=== PATIENT | male | born 1965 ===

== ENCOUNTER 2021-10-17 16:53 | Inpatient (IN) ==
[2021-10-17] MEDS ORDERED: SODIUM CHLORIDE IV ONE (17:08)
[2021-10-17 17:29] LABS: POC Blood Urea Nitrogen 20 (6-20); POC Calcium, Ionized 0.89 (1.16-1.32); POC Chloride 82 (96-108); POC Creatinine 2.2 (0.6-1.2); POC Glucose, Random 118 (70-105); POC Potassium < 2.0 (3.3-5.1); POC Sodium 130 (133-145)
[2021-10-17] MEDS ORDERED: POTASSIUM CHLORIDE 40 MEQ in DEXTROSE 5% IN WATER 500 ML IV ONE (17:36)
--- NOTE | 2021-10-17 17:48 | Emergency Department Note ---
Weakness HPI General Chief complaint: Weakness Stated complaint: Weakness Time Seen by Provider: 10/17/21 17:08 Source: patient Mode of arrival: ambulatory Limitations: no limitations History of Present Illness HPI Narrative: Narrative: Patient presents to the ED with complaints of lower extremity weakness has been worsening x4 days. Patient states that whenever he walks he feels ataxic and give out on him. He states that they feel weird. He also complains of left hand pain x4 days. He states that it is swollen. He does not remember any traumatic event. Patient is a known alcoholic current everyday drinker and although he is answering my questions appropriately and he is lucid he is still obviously drunk. Patient [place] fever, chills, nausea, vomiting, abdominal pain, bladder or bowel incontinence, slurred speech, facial droopiness, upper extremity weakness or numbness. He states he has been eating and drinking plenty of fluid normally. He denies any significant past medical history. He is a current everyday smoker that is try to cut down. Denies any recreational drug use. Patient denies any other alleviating or aggravating factors. Related Data Allergies Allergy/AdvReac Type Severity Reaction Status Date / Time No Known Drug Allergies Allergy Verified 10/17/21 16:55 Review of Systems ROS ROS Narrative: Narrative: All systems ED: reviewed and negative except as stated. [facility] Narrative Patient History Narrative: Narrative: Medical/Surgical/Family History All Active Problems (Updated 10/17/21 @ 18:34 by Gil Espinosa DO) Hypokalemia (Acute) Acute hyponatremia (Acute) Dehydration (Acute) Alcohol intoxication (Acute) Social History Smoking Status: Current some day smoker Alcohol Intake Frequency: 2+ drinks per day Substance Use: does not use Exam Narrative Narrative: Narrative: General Limitations: no limitations General appearance: Present alert Head Head: Present atraumatic and normocephalic Eye Eye: Present PERRL and EOMI ENT ENT: Present normal oropharynx and mucous membranes dry Neck Neck: Present normal inspection and full ROM; Absent meningismus Respiratory Respiratory: Present normal lung sounds bilaterally; Absent respiratory distress Cardiovascular Cardiovascular: Present regular rate and normal rhythm Adbominal Abdominal: Present soft and tenderness Extremities Extremities: Present full ROM and normal capillary refill Back Back: Present normal inspection Neurological Neurological: Present alert, oriented X3 and other (NIHSS=0) Expanded Neurological Motor strength - LUE: 5/5 Motor strength - RUE: 5/5 Motor strength - LLE: 5/5 Motor strength - RLE: 5/5 Psychiatric Psychiatric: Present normal affect and normal mood Skin Skin: Present warm (WNL) and intact Course Course Course Narrative: Patient was evaluated for lower extremity weakness. When patient she arrived he was hypotensive with systolic blood pressure in the 70s. IV fluids were started and patient blood pressure responded appropriately and is now within normal limits. EKG was obtained and was unremarkable. CT of the head was obtained with image reviewed myself with no acute intracranial findings. Labs were obtained and show that patient was severely hypokalemic with a potassium level less than 2. He was also hyponatremic with a sodium level of 130. His magnesium was also low at 1. IV potassium magnesium were ordered and are currently running. Patient's creatinine was up to 2.2 with no known baseline. Seen how he responded to the fluids patient most likely dehydrated as well. Urine was unremarkable. Recommend that patient be admitted to hospitalist service. Case was discussed with hospitalist who has agreed to admit the patient. Patient and family expressed verbal understanding of plan and agreement. Reevaluation(s) Reevaluation #1: Patient remains hemodynamic stable. No new complaints at this time. Time: 17:51 Consultations Consultation #1: Case discussed with hospitalist who has agreed to admit the patient Time: 19:24 Vital Signs Vital signs: Vital Signs Temperature 97.9 F 10/17/21 16:56 Pulse Rate 108 H 10/17/21 16:56 Respiratory Rate 20 10/17/21 16:56 Blood Pressure 77/61 10/17/21 16:56 Pulse Oximetry (%) 96 10/17/21 16:56 Oxygen Delivery Method 10/17/21 16:56 Temperature 97.9 F 10/17/21 16:56 Pulse Rate 89 10/17/21 19:28 Respiratory Rate 30 H 10/17/21 19:28 Blood Pressure 118/79 10/17/21 19:28 Pulse Oximetry (%) 93 10/17/21 19:28 Oxygen Delivery Method 10/17/21 16:56 [facility] MDM Narrative Medical decision making narrative: Narrative: Differential Diagnosis Differential Diagnosis: etoh intox, stroke Medical Records Medical records reviewed: Yes I reviewed the patient's medical records. Lab Data Lab results reviewed: Yes I reviewed the patient's lab results. Result diagrams: 10/17/21 17:20 Labs: Lab Results 10/17/21 10/17/21 10/17/21 Range/Units 17:20 17:20 17:20 POC Hct (41-55) POC Sodium (133-145) POC Potassium (3.3-5.1) POC Chloride (96-108) POC Total CO2 (22-30) POC BUN (6-20) POC Creatinine (0.6-1.2) POC Glucose (70-105) POC WB Ioniz Calcium (1.16-1.32) Magnesium 1.0 L (1.6-2.5) mg/dL Total Bilirubin 2.6 H (0.1-1.0) mg/dL Direct Bilirubin 1.2 H (<0.3) mg/dL AST 91 H (<40) U/L ALT 15 (<40) U/L Alkaline Phosphatase 94 (39-117) U/L Total Protein 7.5 (5.9-8.4) gm/dL Albumin 3.1 L (3.2-5.2) gm/dL Globulin 4.4 H (2.2-3.7) gm/dL Ethyl Alcohol mg/dL 186.0 mg/dL Ethyl Alcohol g/dL 0.186 H (<0.010) gm/dL 10/17/21 Range/Units 17:26 POC Hct 29.0 L (41-55) POC Sodium 130 L (133-145) POC Potassium < 2.0 L* (3.3-5.1) POC Chloride 82 L (96-108) POC Total CO2 27.0 (22-30) POC BUN 20 (6-20) POC Creatinine 2.2 H (0.6-1.2) POC Glucose 118 H (70-105) POC WB Ioniz Calcium 0.89 L (1.16-1.32) Magnesium (1.6-2.5) mg/dL Total Bilirubin (0.1-1.0) mg/dL Direct Bilirubin (<0.3) mg/dL AST (<40) U/L ALT (<40) U/L Alkaline Phosphatase (39-117) U/L Total Protein (5.9-8.4) gm/dL Albumin (3.2-5.2) gm/dL Globulin (2.2-3.7) gm/dL Ethyl Alcohol mg/dL mg/dL Ethyl Alcohol g/dL (<0.010) gm/dL EKG Data EKG #1: EKG attestation: Yes I reviewed and interpreted this EKG. EKG shows normal: sinus rhythm Rate: tachycardia (100) Rhythm: NSR [place]/QRS: right axis deviation Heart block present: None ST segment elevation in: None ST segment depression in: None Hyperacute T waves: None QTc: normal QRS morphology: Present normal When compared to previous EKG there are: no significant changes Core Measures AMI Core Measures Followed: Yes Discharge Plan Patient/Caregiver Discharge Instructions Pt seen by PRODUCTION CONTROL SUPERVISOR/PA only: No Clinical Impression: Hypokalemia, Acute hyponatremia, Dehydration, Alcohol intoxication Patient Disposition: Xfer As Inpt ([facility] Condition: Fair Follow up with: Tuan Arguelles MD [Primary Care Provider] -
[2021-10-17] MEDS ORDERED: POTASSIUM CHLORIDE 40 MEQ/20 ML VIAL IV ONE (18:01)
--- NOTE | 2021-10-17 18:10 | Cat Scan Report ---
INDICATION: weakness COMPARISON: None. TECHNIQUE: Axial noncontrast-enhanced images through the brain. Sagittally and coronally reformatted images. FINDINGS: Cerebral hemispheres:No acute intracranial hemorrhage. No intra-axial hematoma, focal intra-axial attenuation abnormalities or localized mass effect. Paraspinal atrophy. No abnormality consistent with periventricular small vessel ischemic change. Advanced for age. Brainstem and cerebellum:There is cerebellar atrophy. Brainstem appears normal Extra-axial:No acute hemorrhage. No subdural or epidural hematoma. No subarachnoid hemorrhage. Basilar cisterns are normal Calvarial:No calvarial fracture. No lytic lesion Temporal bones are negative. No destructive lesions Soft tissue, orbits, sinuses:Orbits and visualized facial soft tissues and paranasal sinuses are negative IMPRESSION: 1. Cerebral and cerebellar atrophy 2. Periventricular white matter abnormality consistent with small vessel ischemic change 3. No acute abnormality The exam was performed using radiation dose optimization techniques including, but not limited to, automated exposure control, adjustment of the mA and/or kV according to patient size and use of iterative reconstruction technique. Interpreted and Authenticated by: Tobin Altamirano 10/17/21
[2021-10-17 18:16] LABS: Alcohol,Blood 0.186 gm/dL (<0.010)
[2021-10-17 18:20] LABS: ALT/SGPT 15 U/L (<40); AST/SGOT 91 U/L (<40); Albumin 3.1 gm/dL (3.2-5.2); Alkaline Phosphatase 94 U/L (39-117); Bilirubin,Direct 1.2 mg/dL (<0.3); Bilirubin,Total 2.6 mg/dL (0.1-1.0); Globulin 4.4 gm/dL (2.2-3.7)
[2021-10-17] MEDS ORDERED: MAGNESIUM SULFATE 8.12 MEQ in DEXTROSE 5% IN WATER 50 ML IV ONE (18:34)
[2021-10-17] MEDS ORDERED: 0.9 % SODIUM CHLORIDE 1,000 ML IV SCH ×2 (19:00→21:02)
--- NOTE | 2021-10-17 19:15 | XRay Report ---
INDICATION: pain TECHNIQUE: PA, oblique, lateral left hand COMPARISON: None. FINDINGS: No left hand fracture. No acute posttraumatic abnormality. No soft tissue gas. No detectable foreign body. Severe degenerative narrowing of the left second and third metatarsal phalangeal joints. There are no erosions. No evidence for inflammatory arthritis. There is degenerative joint disease in the left triscaphe joint and first carpal metacarpal joint. IMPRESSION: 1. No acute abnormality 2. Degenerative joint disease Interpreted and Authenticated by: Tobin Altamirano 10/17/21
[2021-10-17] MEDS ORDERED: THIAMINE 100 MG in 0.9 % SODIUM CHLORIDE 50 ML IV ONE (19:32)
--- NOTE | 2021-10-17 19:51 | Internal Med History&Physical ---
HPI History of Present Illness Patient information: Note initiated : 10/17/21 at 7:45 pm Service Date, if different from initiated Date: [] Patient: Jimi Mann a 56 y/o M admitted on for Weakness. Chief Complaint: [] History of present illness: Mr. Mann is a 56 year old M Presents to the ED after his roommate called EMS because the patient has become progressively weaker over the past week. Patient is a chronic alcohol use and elevated blood alcohol level in the ED. States last time he saw physician was few years ago. Last hospital notes I could find were from [facility] in 2013 for pneumonia. In the only the records I can find were outpatient physical therapy notes from 2016 related to his recurrent low back pain. Patient states over the past week he has become progressively weak. He says he gets dizzy and lightheaded when he gets up. He also states that when he is up at he feels like he loses his balance easily. Denies any headaches fevers chills nausea or vomiting. In the ED was initially hypotensive but responded well to IV fluid. Is also found to have a mild hyponatremia and a severe hypokalemia and hypomagnesemia. He also had elevated creatinine. Also found elevated bilirubin and blood alcohol level. Potassium was unreadable with less than 2 and sodium was 130. Magnesium was 1.0. Creatinine 2.2 albumin 3.[address] brain was significant for cerebellar atrophy and possibly some cerebellar atrophy. He also has periventricular small vessel disease. 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 Review of Systems: Positives as above. Denies headache/fever/chills/nausea/vomiting/chest or abdominal pain/cough/dyspnea/diarrhea. Remaining 10 point review of system reviewed negative PFSH PFSH All Active Problems (Updated 10/17/21 @ 18:34 by Gil Espinosa DO) Hypokalemia (Acute) Acute hyponatremia (Acute) Dehydration (Acute) Alcohol intoxication (Acute) Social History smoking status: Current some day smoker alcohol intake frequency: 2+ drinks per day substance use type: does not use MEDS/ALLERGIES Home Medications and Allergies Allergies Allergy/AdvReac Type Severity Reaction Status Date / Time No Known Drug Allergies Allergy Verified 10/17/21 16:55 EXAM Constitutional Vitals: Temp Pulse Resp BP Pulse Ox O2 Del Method 97.9 F 89 30 H 118/79 93 10/17/21 16:56 10/17/21 19:28 10/17/21 19:28 10/17/21 19:28 10/17/21 19:28 10/17/21 16:56 Exam: General: Alert, Awake, No acute Distress Eyes/N/T: EOMI, PERRL, dry MM, scleral icterus Head/Neck: neck supple, normocephalic atraumatic CV: RRR, No murmurs, normal s1/s2 Pulm: Clear b/l, no wheezing/rhonchi/rales Abd: soft, nontender, +BS x4 Ext: no clubbing/cyanosis/edema Neuro: Alert, moves all extremities, CN 2-12 grossly intact, symmetrical strength b/l upper/lower, sensations intact b/l upper/lower, [id number] test with mild ataxia. Skin: warm/dry DATA Data Completed and Pending Labs: Labs from last 24 hours 10/17/21 10/17/21 10/17/21 17:26 17:20 17:20 WBC RBC Hgb Hct POC Hct 29.0 L MCV MCH MCHC RDW Plt Count MPV Immature Gran % (Auto) Neut % (Auto) Immature Gran # POC Sodium 130 L POC Potassium < 2.0 L* POC Chloride 82 L POC Total CO2 27.0 POC BUN 20 POC Creatinine 2.2 H POC Glucose 118 H POC WB Ioniz Calcium 0.89 L Phosphorus Pending Magnesium 1.0 L Total Bilirubin Direct Bilirubin AST ALT Alkaline Phosphatase Total Protein Albumin Globulin Ethyl Alcohol mg/dL Ethyl Alcohol g/dL 10/17/21 10/17/21 10/17/21 17:20 17:20 17:20 WBC Pending RBC Pending Hgb Pending Hct Pending POC Hct MCV Pending MCH Pending MCHC Pending RDW Pending Plt Count Pending MPV Pending Immature Gran % (Auto) Pending Neut % (Auto) Pending Immature Gran # Pending POC Sodium POC Potassium POC Chloride POC Total CO2 POC BUN POC Creatinine POC Glucose POC WB Ioniz Calcium Phosphorus Magnesium Total Bilirubin 2.6 H Direct Bilirubin 1.2 H AST 91 H ALT 15 Alkaline Phosphatase 94 Total Protein 7.5 Albumin 3.1 L Globulin 4.4 H Ethyl Alcohol mg/dL 186.0 Ethyl Alcohol g/dL 0.186 H A/P Narrative A/P Narrative: A: *Ataxia, 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 Responded to IVF in the ED *Anemia, with borderline macrocytosis: 2/2 etoh *Hyperbilirubinemia/Hypoalbuminemia likely sequelae of alcohol use and likely developing liver disease *EVAN: 2/2 above, possibly ATN from hypotension *Tobacco abuse: *COPD: P: -IVF, monitor UOP -Thiamine/vitamins -Electrolyte replacement -Liver u/s -ciwa, prn benzo - -Dietary consult -pt/ot -Smoking cessation counseling >3 minutes -Referral to follow with Dr. Pak -ppx: lovenox full code Time Spent With Patient Time: Total time spent is greater than 50% in coordination of care (as documented) at patient's floor/unit and/or counseling patient: Total time spent with greater than 50% in coordination of care (as documented) at patient's floor/unit and/or counseling patient:: Greater than 70 minutes
[2021-10-17 19:56] LABS: Basophils # (Auto) 0.03 K/mcL (0.00-0.30); Basophils % (Auto) 0.4 % (0.0-2.0); Eosinophils # (Auto) 0 K/mcL (0.00-0.70); Eosinophils % (Auto) 0 % (0.0-7.0); Hematocrit 25.8 % (40.1-51.0); Hemoglobin 9.2 g/dL (13.7-17.5); Lymphocytes # (Auto) 0.75 K/mcL (1.50-4.80); Lymphocytes % (Auto) 10.5 % (15.5-49.0); Mean Cell Volume 98.1 fL (80.0-100.0); Mean Corpuscular HGB Conc 35.7 g/dL (31.0-36.0); Mean Platelet Volume 10.9 fL (7.4-10.4); Monocytes # (Auto) 0.75 K/mcL (0.10-0.90); Monocytes % (Auto) 10.5 % (1.0-12.0); Neutrophils % (Auto) 77.9 % (38.0-78.0); Platelet Count 75 K/mcL (140-440); RBC 2.63 M/mcL (4.63-6.08); WBC 7.2 K/mcL (4.5-11.0)
[2021-10-17 20:45] LABS: Phosphorous 1.1 mg/dL (2.5-4.5)
[2021-10-17 20:55] LABS: INR 1.2 (0.9-1.1); Prothrombin Time 15.9 sec (11.9-14.5)
[2021-10-17] MEDS ORDERED: POTASSIUM CHLORIDE 40 MEQ in DEXTROSE 5% IN WATER 500 ML IV PRN (21:02)
[2021-10-17] MEDS ORDERED: POLYETHYLENE GLYCOL 3350 17 GM PACKET PO PRN (21:02)
[2021-10-17] MEDS ORDERED: chlordiazePOXIDE 25 MG CAPSULE PO PRN (21:02)
[2021-10-17] MEDS ORDERED: IPRATROPIUM/ALBUTEROL 3 ML AMPUL.NEB NEB PRN (21:02)
[2021-10-17] MEDS ORDERED: ACETAMINOPHEN 325 MG TABLET PO PRN (21:02)
[2021-10-17] MEDS ORDERED: SENNOSIDES 1 TABLET PO PRN (21:02)
[2021-10-17] MEDS ORDERED: DIAZEPAM 10 MG/2 ML SYRINGE IV PRN (21:02)
[2021-10-17] MEDS ORDERED: ONDANSETRON 4 MG/2 ML VIAL IV PRN (21:02)
[2021-10-17] MEDS ORDERED: POTASSIUM PHOSPHATE 40 MEQ in DEXTROSE 5% IN WATER 500 ML IV ONE (21:05)
[2021-10-17 21:10] LABS: Appearance,Urine Slightly Cloudy (Clear); Bacteria,Urine MANY /hpf (0); Bilirubin,Urine Negative (Negative); Color,Urine Yellow; Culture Indicated,Urine yes; Glucose,Urine (UA) Negative (Negative); Ketones,Urine Negative (Negative); Leukocyte Esterase,Urine Small /uL (Negative); Nitrate,Urine Negative (Negative); Protein,Urine Trace mg/dL (Negative); Urine Blood Moderate ery/mcL (Negative); Urine Hyaline Cast 11 /lph (0-2); Urine RBC 2 /hpf (0-3); Urine Squamous Epithelial Cell < 1 /hpf (0-4); Urine WBC 37 /hpf (0-4); Urobilinogen,Urine 2.0 E.U./dL mg/dL
[2021-10-17] MEDS ORDERED: THIAMINE 100 MG/ML VIAL ONE (21:23)
[2021-10-17] MEDS ORDERED: POTASSIUM PHOSPHATE 66 MEQ/15 ML VIAL IV ONE (21:25)
[2021-10-17] MEDS: NEUTRA PHOS 1 PACKET PO SCH (21:31)
[2021-10-17] MEDS: MULTIVIT,THER IRON,CA,FA & MIN 1 TABLET PO SCH (21:31)
[2021-10-17] MEDS: PHOSPHORUS 250 MG TABLET PO SCH (21:31)
[2021-10-17] MEDS: FAMOTIDINE 20 MG TABLET PO SCH (21:31)
[2021-10-17] MEDS: FOLIC ACID 1 MG TABLET PO SCH (21:31)
[2021-10-17 21:47] LABS: Uric Acid 6.4 mg/dL (2.5-8.0)
[2021-10-17 22:15] LABS: Blood Urea Nitrogen 19 mg/dL (6-20); Calcium 7.5 mg/dL (8.6-10.4); Carbon Dioxide 27 mmol/L (22-30); Chloride 86 mmol/L (96-108); Glomerular Filtration Rate 50; Glucose 116 mg/dL (70-105)
[2021-10-17] MEDS ORDERED: LACTATED RINGERS 1,000 ML IV ONE (22:35)
[2021-10-17] MEDS: 0.9 % SODIUM CHLORIDE 10 ML SYRINGE IV SCH (22:52)
[2021-10-18] MEDS: 0.9 % SODIUM CHLORIDE 10 ML SYRINGE IV SCH ×3 (06:01→22:47)
[2021-10-18 07:40] LABS: ALT/SGPT 12 U/L (<40); AST/SGOT 73 U/L (<40); Albumin 2.7 gm/dL (3.2-5.2); Albumin/Globulin Ratio 0.7 (1.0-2.3); Alkaline Phosphatase 83 U/L (39-117); Bilirubin,Direct 1.2 mg/dL (<0.3); Bilirubin,Total 2.4 mg/dL (0.1-1.0); Blood Urea Nitrogen 14 mg/dL (6-20); Calcium 7.4 mg/dL (8.6-10.4); Carbon Dioxide 29 mmol/L (22-30); Chloride 90 mmol/L (96-108); Glomerular Filtration Rate 66; Glucose 97 mg/dL (70-105); Lactate Dehydrogenase 338 U/L (135-225); Phosphorous 3.8 mg/dL (2.5-4.5); Triglycerides 78 mg/dL (<150); Uric Acid 5.4 mg/dL (2.5-8.0)
[2021-10-18] MEDS: 0.9 % SODIUM CHLORIDE 1,000 ML IV SCH ×2 (08:17→09:05)
[2021-10-18] MEDS ORDERED: MAGNESIUM SULFATE 24.36 MEQ in DEXTROSE 5% IN WATER 50 ML IV ONE (08:35)
--- NOTE | 2021-10-18 08:36 | Internal Med Progress Note ---
SUBJECTIVE Subjective Patient information: Note initiated : 10/18/21 at 8:32 am Service Date, if different from initiated Date: [] Patient: Jimi Mann 56 y/o M admitted on 10/17/21 for Weakness. Chief Complaint: [] Interval history: History of present illness: Mr. Mann is a 56 year old M Presents to the ED after his roommate called EMS because the patient has become progressively weaker over the past week. Patient is a chronic alcohol use and elevated blood alcohol level in the ED. States last time he saw physician was few years ago. Last hospital notes I could find were from [facility] in 2013 for pneumonia. In the only the records I can find were outpatient physical therapy notes from 2016 related to his recurrent low back pain. Patient states over the past week he has become progressively weak. He says he gets dizzy and lightheaded when he gets up. He also states that when he is up at he feels like he loses his balance easily. Denies any headaches fevers chills nausea or vomiting. In the ED was initially hypotensive but responded well to IV fluid. Is also found to have a mild hyponatremia and a severe hypokalemia and hypomagnesemia. He also had elevated creatinine. Also found elevated bilirubin and blood alcohol level. Potassium was unreadable with less than 2 and sodium was 130. Magnesium was 1.0. Creatinine 2.2 albumin 3.[address] brain was significant for cerebellar atrophy and possibly some cerebellar atrophy. He also has periventricular small vessel disease. 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 10/18 Patient became hypotensive poor urine output yesterday evening. Lactated ringer bolus with maintenance fluid and improvement in vitals and urine output. Yann tong continues to have severe electrolyte abnormalities. Continue aggressive repletion. Liver ultrasound pending. Platelets 69. Potassium 1.9 mag 1.1. Review of Systems: denies headache/fever/chills/nausea/vomiting/chest or abdominal pain/cough/dyspnea/diarrhea. Otherwise see above. Constitutional Vitals: Vital Signs Temp Pulse Resp BP Pulse Ox O2 Del Method O2 Flow Rate 99.3 F H 82 23 H 132/72 94 0 10/18/21 08:00 10/17/21 21:05 10/18/21 08:00 10/18/21 08:00 10/18/21 04:00 10/17/21 20:55 10/17/21 19:31 Period Temp Pulse Resp BP Sys/Vaughn Pulse Ox O2 Del Method O2 Flow Rate Last 24 Hr 97.4 F-99.3 F 82-108 17-30 74-136/51-89 89-99 Room Air-Room Air 0 Intake and Output 10/17/21 10/18/21 10/18/21 21:59 05:59 13:59 Intake Total 21010.0909 636 Output Total 125 1075 240 Balance 1976 1005.0909 396 Weight 58.967 kg Intake & Output: Intake & Output 10/17/21 10/18/21 10/18/21 21:59 05:59 13:59 Intake Total 21010.0909 636 Output Total 125 1075 240 Balance 1976 1005.0909 396 Weight 58.967 kg Intake: IV 2101 2079.09 636 Sodium Chloride 0.9% 1,000 ml @ 2049 636 75 mls/hr IV .[id number] [facility] Rx#: [id number] Lactated Ringers 1,000 ml @ 1000 Wide Open IV BOLUS ONE Rx#: [id number] Magnesium Sulfate 8.12 Meq In 52 Dextrose 5% in Water 50 ml @ 52 mls/hr IV ONCE ONE Rx#: [id number] Potassium Chloride 40 Meq In 520 Dextrose 5% in Water 500 ml @ 130 mls/hr IV ONCE ONE Rx#: [id number] Potassium Phosphate 40 Meq In 509.0909 Dextrose 5% in Water 500 ml @ 127.273 mls/hr IV ONCE ONE Rx#: [id number] Vitamin B1 100 mg In Sodium 51 Chloride 0.9% 50 ml @ 50 mls/hr IV ONCE ONE Rx#:[id number] Output: Void Amount 125 1075 240 Other: Urine Appearance Cloudy Cloudy Clear Urine Color Dark [place] Dark [place] Bright Yellow Urine Odor Normal Exam: General: Alert, Awake, No acute Distress Eyes/N/T: EOMI, scleral icterus Head/Neck: neck supple, CV: RRR, No murmurs, Pulm: Clear b/l, no wheezing/rhonchi/rales Abd: soft, nontender, +BS x4 Ext: no clubbing/cyanosis/edema Neuro: Alert, moves all extremities, [id number] test with mild ataxia. Skin: warm/dry OBJ DATA Labs CBC & Chem 7: 10/18/21 05:30 10/18/21 05:29 Labs: Abnormal Lab Results 10/18/21 10/17/21 10/17/21 05:29 20:51 20:47 RBC Hgb Hct POC Hct MCH RDW Plt Count MPV Immature Gran % (Auto) Lymph % (Auto) Lymph # (Auto) PT INR POC Sodium Sodium 129 L POC Potassium Potassium 1.9 L* 2.0 L* POC Chloride Chloride 90 L 86 L Creatinine 1.5 H POC Creatinine Glucose 116 H POC Glucose Calcium 7.4 L 7.5 L POC WB Ioniz Calcium Phosphorus Magnesium 1.1 L Total Bilirubin 2.4 H Direct Bilirubin 1.2 H GGT 160 H 181 H AST 73 H Lactate Dehydrogenase 338 H Albumin 2.7 L Globulin 4.0 H Albumin/Globulin Ratio 0.7 L Urine Appearance Urine Protein Urine Occult Blood Urine Urobilinogen Ur Leukocyte Esterase Urine WBC Urine Bacteria Hyaline Casts Ethyl Alcohol g/dL 10/17/21 10/17/21 10/17/21 20:27 17:26 17:20 RBC Hgb Hct POC Hct 29.0 L MCH RDW Plt Count MPV Immature Gran % (Auto) Lymph % (Auto) Lymph # (Auto) PT 15.9 H INR 1.2 H POC Sodium 130 L Sodium POC Potassium < 2.0 L* Potassium POC Chloride 82 L Chloride Creatinine POC Creatinine 2.2 H Glucose POC Glucose 118 H Calcium POC WB Ioniz Calcium 0.89 L Phosphorus Magnesium Total Bilirubin Direct Bilirubin GGT AST Lactate Dehydrogenase Albumin Globulin Albumin/Globulin Ratio Urine Appearance Slightly cloudy A Urine Protein Trace A Urine Occult Blood Moderate A Urine Urobilinogen 2.0 e.u./dl A Ur Leukocyte Esterase Small A Urine WBC 37 H Urine Bacteria Many A Hyaline Casts 11 H Ethyl Alcohol g/dL 10/17/21 10/17/21 10/17/21 17:20 17:20 17:20 RBC Hgb Hct POC Hct MCH RDW Plt Count MPV Immature Gran % (Auto) Lymph % (Auto) Lymph # (Auto) PT INR POC Sodium Sodium POC Potassium Potassium POC Chloride Chloride Creatinine POC Creatinine Glucose POC Glucose Calcium POC WB Ioniz Calcium Phosphorus 1.1 L Magnesium 1.0 L Total Bilirubin 2.6 H Direct Bilirubin 1.2 H GGT AST 91 H Lactate Dehydrogenase Albumin 3.1 L Globulin 4.4 H Albumin/Globulin Ratio Urine Appearance Urine Protein Urine Occult Blood Urine Urobilinogen Ur Leukocyte Esterase Urine WBC Urine Bacteria Hyaline Casts Ethyl Alcohol g/dL 10/17/21 10/17/21 17:20 17:20 RBC 2.63 L Hgb 9.2 L Hct 25.8 L POC Hct MCH 35.0 H RDW 17.0 H Plt Count 75 L MPV 10.9 H Immature Gran % (Auto) 0.7 H Lymph % (Auto) 10.5 L Lymph # (Auto) 0.75 L PT INR POC Sodium Sodium POC Potassium Potassium POC Chloride Chloride Creatinine POC Creatinine Glucose POC Glucose Calcium POC WB Ioniz Calcium Phosphorus Magnesium Total Bilirubin Direct Bilirubin GGT AST Lactate Dehydrogenase Albumin Globulin Albumin/Globulin Ratio Urine Appearance Urine Protein Urine Occult Blood Urine Urobilinogen Ur Leukocyte Esterase Urine WBC Urine Bacteria Hyaline Casts Ethyl Alcohol g/dL 0.186 H Meds: Medications Acetaminophen (Acetaminophen 325 Mg Tablet) 650 mg PO Q6HP PRN; Protocol PRN Reason: Per Pain Protocol/Fever > 101 Albuterol/Ipratropium (Ipratropium/Albuterol 3 Ml Ampul.Neb) 3 ml NEB Q4HP PRN PRN Reason: Shortness Of Breath Chlordiazepoxide HCl (Chlordiazepoxide 25 Mg Capsule) 25 mg PO Q4HP PRN PRN Reason: Alcohol Withdrawal/Assess CIWA Diazepam (Diazepam 10 Mg/2 Ml Syringe) 5 - 10 mg IV Q2HP PRN PRN Reason: Alcohol Withdrawal/Assess CIWA Enoxaparin Sodium (Enoxaparin 40 Mg/0.4 Ml Syringe) 40 mg SQ DAILY [facility] Famotidine (Famotidine 20 Mg Tablet) 20 mg PO BID [facility] Last Admin: 10/17/21 21:31 Dose: 20 mg Folic Acid (Folic Acid 1 Mg Tablet) 1 mg PO DAILY [facility] Last Admin: 10/17/21 21:31 Dose: 1 mg Potassium Chloride 40 meq/ (Dextrose) 520 mls @ 130 mls/hr IV UD PRN PRN Reason: Potassium < 3 Magnesium Sulfate (Magnesium Sulfate) 2 gm in 50 mls @ 50 mls/hr IV UD PRN PRN Reason: Magnesium </= 1.6 Thiamine HCl 100 mg/ Sodium (Chloride) 51 mls @ 50 mls/hr IV DAILY [facility] Sodium Chloride (Sodium Chloride 0.9%) 1,000 mls @ 100 mls/hr IV .Q10H [facility] Stop: 10/18/21 18:35 Last Admin: 10/18/21 08:17 Dose: Not Given Iron Carb/Multivit/Regulatory Affairs Coordinator/Folic Acid (Multivit,Ther Iron,Ca,Fa & Min 1 Tablet) 1 tab PO DAILY [facility] Last Admin: 10/17/21 21:31 Dose: 1 tab Ondansetron HCl (Ondansetron 4 Mg/2 Ml Vial) 4 mg IV Q4HP PRN PRN Reason: Nausea And Vomiting Polyethylene Glycol (Polyethylene Glycol 3350 17 Gm Packet) 17 gm PO DAILYP PRN PRN Reason: Constipation Potassium Chloride (Potassium Chloride 20 Meq Tablet) 40 meq PO UD PRN PRN Reason: Potssium is 3-3.5 Potassium Chloride (Potassium Chloride 20 Meq Tablet) 40 meq PO UD PRN PRN Reason: Potassium < 3 Potassium/Phosphorus/Sodium (Neutra Phos 1 Packet) 1 packet PO BID [facility] Stop: 10/18/21 09:01 Last Admin: 10/17/21 21:31 Dose: 1 packet Senna (Sennosides 1 Tablet) 2 tab PO DAILYP PRN PRN Reason: Constipation Sodium Chloride (0.9 % Sodium Chloride 10 Ml Syringe) 10 ml IV Q8 [facility] Last Admin: 10/18/21 06:01 Dose: 10 ml Sodium Phosphate (Phosphorus 250 Mg Tablet) 250 mg PO BID [facility] Stop: 10/18/21 09:01 Last Admin: 10/17/21 21:31 Dose: 250 mg A/P Narrative A/P Narrative: A: *Ataxia, 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 Responded to IVF in the ED, then needed bolus in ICU *Anemia, with borderline macrocytosis: 2/2 etoh *Hyperbilirubinemia/Hypoalbuminemia/Thrombocytopenia likely sequelae of alcohol use and likely developing liver disease *EVAN: 2/2 above, possibly ATN from hypotension, improving *Tobacco abuse: *COPD: P: -IVF, monitor UOP -Thiamine/vitamins -cont Electrolyte replacement -Liver u/s -ciwa, prn benzo -Dietary consult -pt/ot -Smoking cessation counseling -Referral to follow with Dr. Pak -ppx: lovenox (as long ast PLTs>50k) full code Time Spent With Patient Time: Total time spent is greater than 50% in coordination of care (as documented) at patient's floor/unit and/or counseling patient: Total time spent with greater than 50% in coordination of care (as documented) at patient's floor/unit and/or counseling patient:: 35 - 50 minutes
[2021-10-18 08:40] LABS: Basophils # (Auto) 0.03 K/mcL (0.00-0.30); Basophils % (Auto) 0.6 % (0.0-2.0); Eosinophils # (Auto) 0.01 K/mcL (0.00-0.70); Eosinophils % (Auto) 0.2 % (0.0-7.0); Hematocrit 22.3 % (40.1-51.0); Hemoglobin 8.3 g/dL (13.7-17.5); Lymphocytes # (Auto) 0.66 K/mcL (1.50-4.80); Lymphocytes % (Auto) 12.9 % (15.5-49.0); Mean Corpuscular HGB Conc 37.2 g/dL (31.0-36.0); Mean Platelet Volume 11.1 fL (7.4-10.4); Monocytes # (Auto) 0.39 K/mcL (0.10-0.90); Monocytes % (Auto) 7.6 % (1.0-12.0); Neutrophils % (Auto) 78.3 % (38.0-78.0); Platelet Count 69 K/mcL (140-440); Red Cell Distribution Width 17.2 % (11.5-14.5); WBC 5.1 K/mcL (4.5-11.0)
[2021-10-18] MEDS ORDERED: POTASSIUM CHLORIDE 20 MEQ in DEXTROSE 5% IN WATER 250 ML IV ONE ×2 (08:44→16:44)
[2021-10-18] MEDS: MULTIVIT,THER IRON,CA,FA & MIN 1 TABLET PO SCH (09:03)
[2021-10-18] MEDS: FAMOTIDINE 20 MG TABLET PO SCH ×2 (09:03→20:29)
[2021-10-18] MEDS: FOLIC ACID 1 MG TABLET PO SCH (09:03)
[2021-10-18] MEDS: ENOXAPARIN 40 MG/0.4 ML SYRINGE SQ SCH (09:03)
[2021-10-18] MEDS: POTASSIUM CHLORIDE 20 MEQ TABLET PO PRN ×2 (09:03→17:12)
[2021-10-18] MEDS: NEUTRA PHOS 1 PACKET PO SCH (09:03)
[2021-10-18] MEDS: THIAMINE 100 MG in 0.9 % SODIUM CHLORIDE 50 ML IV SCH (09:04)
[2021-10-18] MEDS: MAGNESIUM SULFATE 2 GM/50 ML BAG IV PRN (09:04)
[2021-10-18] MEDS: PHOSPHORUS 250 MG TABLET PO SCH (09:15)
--- NOTE | 2021-10-18 09:51 | Ultrasound Report ---
INDICATION: Hyperbilirubinemia, alcohol use TECHNIQUE: Grayscale and color flow Doppler spectral imaging COMPARISON: None. FINDINGS: Gallbladder:Gallbladder is distended and measures approximately 11 cm in maximum dimension. There is biliary sludge. No discrete stones. No gallbladder wall thickening or pericholecystic fluid Common bile duct:No intrahepatic bile duct dilatation identified. Common bile duct measures 7 mm. Liver:Liver is echogenic and dense. Findings are consistent with hepatic steatosis. No focal mass. Liver contour is smooth. There is no ascites. Liver [id number] cm Portal vein:Normal hepatopedal portal venous flow Pancreas:Visualized portions of the pancreas are normal IMPRESSION: 1. Distended gallbladder with biliary sludge. No discrete stones. No gallbladder wall thickening 2. Echogenic liver consistent with hepatic steatosis Interpreted and Authenticated by: Tobin Altamirano 10/18/21
--- NOTE | 2021-10-18 10:23 | Discharge Summary ---
Discharge Provider Provider IMPORTANT FOLLOW-UP INFORMATION FOR PCP: Patient information: Note initiated : 10/18/21 at 10:21 am Service Date, if different from initiated Date: [] Patient: Jimi Mann 56 y/o M admitted on 10/17/21 for Weakness. Chief Complaint: [] Date of admission: 10/17/21 20:55 Primary care physician: Tuan Arguelles Consults: 10/17/21 Consult to Physician [CONS] Stat Comment: Consulting Provider: Simon Marcial Reason For Exam: Physician to Consult Consult to Physician [CONS] Stat Comment: severe hypokalemia Consulting Provider: Simon Marcial Reason For Exam: Physician to Consult COURSE Hospital Course Hospital course: History of present illness: Mr. Mann is a 56 year old M Presents to the ED after his roommate called EMS because the patient has become progressively weaker over the past week. Patient is a chronic alcohol use and elevated blood alcohol level in the ED. States last time he saw physician was few years ago. Last hospital notes I could find were from [facility] in 2013 for pneumonia. In the only the records I can find were outpatient physical therapy notes from 2016 related to his recurrent low back pain. Patient states over the past week he has become progressively weak. He says he gets dizzy and lightheaded when he gets up. He also states that when he is up at he feels like he loses his balance easily. Denies any headaches fevers chills nausea or vomiting. In the ED was initially hypotensive but responded well to IV fluid. Is also found to have a mild hyponatremia and a severe hypokalemia and hypomagnesemia. He also had elevated creatinine. Also found elevated bilirubin and blood alcohol level. Potassium was unreadable with less than 2 and sodium was 130. Magnesium was 1.0. Creatinine 2.2 albumin 3.[address] brain was significant for cerebellar atrophy and possibly some cerebellar atrophy. He also has periventricular small vessel disease. 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 10/18 Patient became hypotensive poor urine output yesterday evening. Lactated ringer bolus with maintenance fluid and improvement in vitals and urine output. Patient continues to have severe electrolyte abnormalities. Continue aggressive repletion. Liver ultrasound pending. Platelets 69. Potassium 1.9 mag 1.1. 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 Responded to IVF in the ED, then needed bolus in ICU *Anemia, with borderline macrocytosis: 2/2 etoh *Hyperbilirubinemia/Hypoalbuminemia/Thrombocytopenia likely sequelae of alcohol use and likely developing liver disease *EVAN: 2/2 above, possibly ATN from hypotension, improving *Tobacco abuse: *COPD: P: -Referral to follow with Dr. Pak Discharge diagnosis: Ataxia likely alcoholic cerebellar degeneration chronic alcohol use general Secondary discharge diagnosis: Severe electrolyte abnormalities hypertension anemia liver disease acute kidney injury tobacco abuse COPD Time Spent with Patient Time attestation: Total time spent providing and/or coordinating discharge services: Time spent: Greater than 30 minutes EXAM Constitutional Vitals: Temp Pulse Resp BP Pulse Ox O2 Del Method O2 Flow Rate 99.3 F H 82 23 H 132/72 94 0 10/18/21 08:00 10/17/21 21:05 10/18/21 08:00 10/18/21 08:00 10/18/21 04:00 10/17/21 20:55 10/17/21 19:31 Discharge Data Data Completed and Pending Labs on day of discharge: Labs from last 24 hours 10/18/21 10/18/21 10/17/21 05:30 05:29 20:51 WBC 5.1 RBC 2.30 L Hgb 8.3 L Hct 22.3 L POC Hct MCV 97.0 MCH 36.1 H MCHC 37.2 H RDW 17.2 H Plt Count 69 L MPV 11.1 H Immature Gran % (Auto) 0.4 Neut % (Auto) 78.3 H Lymph % (Auto) 12.9 L [place] % (Auto) 7.6 Eos % (Auto) 0.2 Baso % (Auto) 0.6 Lymph # (Auto) 0.66 L [place] # (Auto) 0.39 Eos # (Auto) 0.01 Baso # (Auto) 0.03 Immature Gran # 0.02 Absolute Neutrophils 4.02 PT INR POC Sodium Sodium 134 POC Potassium Potassium 1.9 L* POC Chloride Chloride 90 L Carbon Dioxide 29 POC Total CO2 Anion Gap 15.0 POC BUN BUN 14 Creatinine 1.2 POC Creatinine GFR Calculation 66 Glucose 97 POC Glucose Uric Acid 5.4 6.4 Calcium 7.4 L POC WB Ioniz Calcium Phosphorus 3.8 Magnesium 1.1 L Total Bilirubin 2.4 H Direct Bilirubin 1.2 H GGT 160 H 181 H AST 73 H ALT 12 Alkaline Phosphatase 83 Lactate Dehydrogenase 338 H Total Protein 6.7 Albumin 2.7 L Globulin 4.0 H Albumin/Globulin Ratio 0.7 L Triglycerides 78 Vitamin B12 578.2 Urine Color Urine Appearance Urine pH Ur Specific [place] Urine Protein Urine Glucose (UA) Urine Ketones Urine Occult Blood Urine Nitrate Urine Bilirubin Urine Urobilinogen Ur Leukocyte Esterase Urine RBC Urine WBC Ur Squamous Epith Cells Urine Bacteria Hyaline Casts Ur Culture Indicated? Ethyl Alcohol mg/dL Ethyl Alcohol g/dL 10/17/21 10/17/21 10/17/21 20:47 20:27 17:26 WBC RBC Hgb Hct POC Hct 29.0 L MCV MCH MCHC RDW Plt Count MPV Immature Gran % (Auto) Neut % (Auto) Lymph % (Auto) [place] % (Auto) Eos % (Auto) Baso % (Auto) Lymph # (Auto) [place] # (Auto) Eos # (Auto) Baso # (Auto) Immature Gran # Absolute Neutrophils PT INR POC Sodium 130 L Sodium 129 L POC Potassium < 2.0 L* Potassium 2.0 L* POC Chloride 82 L Chloride 86 L Carbon Dioxide 27 POC Total CO2 27.0 Anion Gap 16.0 POC BUN 20 BUN 19 Creatinine 1.5 H POC Creatinine 2.2 H GFR Calculation 50 Glucose 116 H POC Glucose 118 H Uric Acid Calcium 7.5 L POC WB Ioniz Calcium 0.89 L Phosphorus Magnesium Total Bilirubin Direct Bilirubin GGT AST ALT Alkaline Phosphatase Lactate Dehydrogenase Total Protein Albumin Globulin Albumin/Globulin Ratio Triglycerides Vitamin B12 Urine Color Yellow Urine Appearance Slightly cloudy A Urine pH 6.0 Ur Specific [place] 1.010 Urine Protein Trace A Urine Glucose (UA) Negative Urine Ketones Negative Urine Occult Blood Moderate A Urine Nitrate Negative Urine Bilirubin Negative Urine Urobilinogen 2.0 e.u./dl A Ur Leukocyte Esterase Small A Urine RBC 2 Urine WBC 37 H Ur Squamous Epith Cells < 1 Urine Bacteria Many A Hyaline Casts 11 H Ur Culture Indicated? yes Ethyl Alcohol mg/dL Ethyl Alcohol g/dL 10/17/21 10/17/21 10/17/21 17:20 17:20 17:20 WBC RBC Hgb Hct POC Hct MCV MCH MCHC RDW Plt Count MPV Immature Gran % (Auto) Neut % (Auto) Lymph % (Auto) [place] % (Auto) Eos % (Auto) Baso % (Auto) Lymph # (Auto) [place] # (Auto) Eos # (Auto) Baso # (Auto) Immature Gran # Absolute Neutrophils PT 15.9 H INR 1.2 H POC Sodium Sodium POC Potassium Potassium POC Chloride Chloride Carbon Dioxide POC Total CO2 Anion Gap POC BUN BUN Creatinine POC Creatinine GFR Calculation Glucose POC Glucose Uric Acid Calcium POC WB Ioniz Calcium Phosphorus 1.1 L Magnesium 1.0 L Total Bilirubin Direct Bilirubin GGT AST ALT Alkaline Phosphatase Lactate Dehydrogenase Total Protein Albumin Globulin Albumin/Globulin Ratio Triglycerides Vitamin B12 Urine Color Urine Appearance Urine pH Ur Specific [place] Urine Protein Urine Glucose (UA) Urine Ketones Urine Occult Blood Urine Nitrate Urine Bilirubin Urine Urobilinogen Ur Leukocyte Esterase Urine RBC Urine WBC Ur Squamous Epith Cells Urine Bacteria Hyaline Casts Ur Culture Indicated? Ethyl Alcohol mg/dL Ethyl Alcohol g/dL 10/17/21 10/17/21 10/17/21 17:20 17:20 17:20 WBC 7.2 RBC 2.63 L Hgb 9.2 L Hct 25.8 L POC Hct MCV 98.1 MCH 35.0 H MCHC 35.7 RDW 17.0 H Plt Count 75 L MPV 10.9 H Immature Gran % (Auto) 0.7 H Neut % (Auto) 77.9 Lymph % (Auto) 10.5 L [place] % (Auto) 10.5 Eos % (Auto) 0 Baso % (Auto) 0.4 Lymph # (Auto) 0.75 L [place] # (Auto) 0.75 Eos # (Auto) 0 Baso # (Auto) 0.03 Immature Gran # 0.05 Absolute Neutrophils 5.58 PT INR POC Sodium Sodium POC Potassium Potassium POC Chloride Chloride Carbon Dioxide POC Total CO2 Anion Gap POC BUN BUN Creatinine POC Creatinine GFR Calculation Glucose POC Glucose Uric Acid Calcium POC WB Ioniz Calcium Phosphorus Magnesium Total Bilirubin 2.6 H Direct Bilirubin 1.2 H GGT AST 91 H ALT 15 Alkaline Phosphatase 94 Lactate Dehydrogenase Total Protein 7.5 Albumin 3.1 L Globulin 4.4 H Albumin/Globulin Ratio Triglycerides Vitamin B12 Urine Color Urine Appearance Urine pH Ur Specific [place] Urine Protein Urine Glucose (UA) Urine Ketones Urine Occult Blood Urine Nitrate Urine Bilirubin Urine Urobilinogen Ur Leukocyte Esterase Urine RBC Urine WBC Ur Squamous Epith Cells Urine Bacteria Hyaline Casts Ur Culture Indicated? Ethyl Alcohol mg/dL 186.0 Ethyl Alcohol g/dL 0.186 H Discharge Plan Patient/Caregiver Discharge Instructions Activity: increase activity as tolerated Diet: Regular Diet Activity Restrictions/Additional Instructions: Abstain from alcohol. Follow-up closely with PCP in 3 to 7 days. Prescriptions: No Action No Known Home Meds Follow Up Plan Follow up with: Tuan Arguelles MD [Primary Care Provider] - Norma Pak DO [Physician] - (Alcohol abuse) Patient Disposition: Home, Self-Care Prognosis: Fair Overall status at discharge: patient is progressing back to baseline
[2021-10-18 16:06] LABS: Blood Urea Nitrogen 21 mg/dL (6-20); Carbon Dioxide 28 mmol/L (22-30); Chloride 88 mmol/L (96-108); Glomerular Filtration Rate 66; Glucose 110 mg/dL (70-105)
[2021-10-18] MEDS ORDERED: POTASSIUM CHLORIDE 40 MEQ in DEXTROSE 5% IN WATER 500 ML IV ONE (16:43)
[2021-10-18] MEDS ORDERED: POTASSIUM CHLORIDE 40 MEQ/20 ML VIAL IV ONE (17:53)
[2021-10-18] MEDS: cefTRIAXone 1 GM VIAL IV SCH (19:04)
[2021-10-18] MEDS ORDERED: POTASSIUM ACETATE 2 MEQ/ML ML IV ONE (22:51)
[2021-10-19] MEDS: 0.9 % SODIUM CHLORIDE 10 ML SYRINGE IV SCH ×3 (05:58→22:00)
[2021-10-19 06:19] LABS: Basophils # (Auto) 0.05 K/mcL (0.00-0.30); Basophils % (Auto) 1.3 % (0.0-2.0); Eosinophils # (Auto) 0.07 K/mcL (0.00-0.70); Eosinophils % (Auto) 1.8 % (0.0-7.0); Hemoglobin 7.7 g/dL (13.7-17.5); Lymphocytes # (Auto) 0.75 K/mcL (1.50-4.80); Lymphocytes % (Auto) 19.3 % (15.5-49.0); Mean Cell Volume 101.4 fL (80.0-100.0); Mean Platelet Volume 10.5 fL (7.4-10.4); Monocytes # (Auto) 0.51 K/mcL (0.10-0.90); Monocytes % (Auto) 13.1 % (1.0-12.0); Platelet Count 86 K/mcL (140-440); RBC 2.17 M/mcL (4.63-6.08); Red Cell Distribution Width 17.6 % (11.5-14.5); WBC 3.9 K/mcL (4.5-11.0)
[2021-10-19 06:48] LABS: ALT/SGPT 11 U/L (<40); AST/SGOT 61 U/L (<40); Albumin 2.5 gm/dL (3.2-5.2); Albumin/Globulin Ratio 0.7 (1.0-2.3); Alkaline Phosphatase 96 U/L (39-117); Bilirubin,Direct 0.7 mg/dL (<0.3); Bilirubin,Total 1.3 mg/dL (0.1-1.0); Blood Urea Nitrogen 20 mg/dL (6-20); Calcium 7.9 mg/dL (8.6-10.4); Carbon Dioxide 29 mmol/L (22-30); Chloride 93 mmol/L (96-108); Globulin 3.7 gm/dL (2.2-3.7); Glomerular Filtration Rate 82; Glucose 126 mg/dL (70-105); Lactate Dehydrogenase 293 U/L (135-225); Phosphorous 1.3 mg/dL (2.5-4.5); Triglycerides 74 mg/dL (<150); Uric Acid 4.2 mg/dL (2.5-8.0)
[2021-10-19] MEDS: POTASSIUM CHLORIDE 20 MEQ TABLET PO PRN (07:23)
[2021-10-19] MEDS ORDERED: POTASSIUM PHOSPHATE 40 MEQ in DEXTROSE 5% IN WATER 500 ML IV ONE (08:03)
[2021-10-19] MEDS ORDERED: POTASSIUM CHLORIDE 60 MEQ in DEXTROSE 5% IN WATER 1,000 ML IV ONE (08:03)
[2021-10-19] MEDS ORDERED: MAGNESIUM SULFATE 8.12 MEQ in DEXTROSE 5% IN WATER 50 ML IV ONE (08:04)
--- NOTE | 2021-10-19 08:05 | Internal Med Progress Note ---
SUBJECTIVE Subjective Patient information: Note initiated : 10/19/21 at 7:56 am Service Date, if different from initiated Date: [] Patient: Jimi Mann a 56 y/o M admitted on 10/17/21 for Weakness. Chief Complaint: [] Interval history: History of present illness: Mr. Mann is a 56 year old M Presents to the ED after his roommate called EMS because the patient has become progressively weaker over the past week. Patient is a chronic alcohol use and elevated blood alcohol level in the ED. States last time he saw physician was few years ago. Last hospital notes I could find were from [facility] in 2013 for pneumonia. In the only the records I can find were outpatient physical therapy notes from 2016 related to his recurrent low back pain. Patient states over the past week he has become progressively weak. He says he gets dizzy and lightheaded when he gets up. He also states that when he is up at he feels like he loses his balance easily. Denies any headaches fevers chills nausea or vomiting. In the ED was initially hypotensive but responded well to IV fluid. Is also found to have a mild hyponatremia and a severe hypokalemia and hypomagnesemia. He also had elevated creatinine. Also found elevated bilirubin and blood alcohol level. Potassium was unreadable with less than 2 and sodium was 130. Magnesium was 1.0. Creatinine 2.2 albumin 3.[address] brain was significant for cerebellar atrophy and possibly some cerebellar atrophy. He also has periventricular small vessel disease. 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 10/18 Patient became hypotensive poor urine output yesterday evening. Lactated ringer bolus with maintenance fluid and improvement in vitals and urine output. Yann tong continues to have severe electrolyte abnormalities. Continue aggressive repletion. Liver ultrasound pending. Platelets 69. Potassium 1.9 mag 1.1. 10/19 Feeling a little better. Laboratory still significantly abnormal. Low blood pressures overnight. Anemia worsened likely delusional but will check fecal occult blood test. Hepatic steatosis noted on liver ultrasound. Did receive Librium last night for CIWA score and score low this morning. Review of Systems: denies headache/fever/chills/nausea/vomiting/chest or abdominal pain/cough/dyspnea/diarrhea. Otherwise see above. Constitutional Vitals: Vital Signs Temp Pulse Resp BP Pulse Ox O2 Del Method O2 Flow Rate 97.8 F 79 18 100/75 92 0 10/19/21 00:00 10/19/21 07:00 10/19/21 07:45 10/19/21 07:00 10/19/21 07:45 10/19/21 07:45 10/17/21 19:31 Period Temp Pulse Resp BP Sys/Vaughn Pulse Ox O2 Del Method O2 Flow Rate Last 24 Hr 97.8 F-99.3 F 70-104 15-32 86-132/61-84 90-96 Room Air Intake and Output 10/18/21 10/19/21 10/19/21 21:59 05:59 13:59 Intake Total 260 780 400 Output Total 451 450 350 Balance -191 330 50 Weight 70.398 kg Intake & Output: Intake & Output 10/18/21 10/19/21 10/19/21 21:59 05:59 13:59 Intake Total 260 780 400 Output Total 451 450 350 Balance -191 330 50 Weight 70.398 kg Intake: IV 260 780 Potassium Chloride 20 Meq In 260 260 Dextrose 5% in Water 250 ml @ 130 mls/hr IV ONCE ONE Rx#: [id number] Potassium Chloride 40 Meq In 520 Dextrose 5% in Water 500 ml @ 130 mls/hr IV ONCE ONE Rx#: [id number] Oral 400 Output: Void Amount 450 450 350 # of times incontinent of urine 1 Other: Urine Appearance Cloudy Clear Cloudy Urine Color Light [place] Pale Dark [place] Urine Odor Foul Strong Stool Size Moderate Stool Color Brown Stool Consistency Loose # Voids 1 # Bowel Movements 1 # of times incontinent of 1 Bowels Exam: General: Alert, Awake, No acute Distress Eyes/N/T: EOMI, scleral icterus Head/Neck: neck supple, CV: RRR, No murmurs, Pulm: Clear b/l, no wheezing/rhonchi/rales Abd: soft, nontender, +BS x4 Ext: no clubbing/cyanosis/edema Neuro: Alert, moves all extremities, Skin: warm/dry OBJ DATA Labs CBC & Chem 7: 10/19/21 05:27 10/19/21 05:27 Labs: Abnormal Lab Results 10/19/21 10/19/21 10/18/21 05:27 05:27 15:10 WBC 3.9 L RBC 2.17 L Hgb 7.7 L Hct 22.0 L POC Hct MCV 101.4 H MCH 35.5 H MCHC RDW 17.6 H Plt Count 86 L MPV 10.5 H Immature Gran % (Auto) Neut % (Auto) Lymph % (Auto) [place] % (Auto) 13.1 H Lymph # (Auto) 0.75 L PT INR POC Sodium Sodium 131 L POC Potassium Potassium 2.5 L* 2.7 L* POC Chloride Chloride 93 L 88 L BUN 21 H Creatinine POC Creatinine Glucose 126 H 110 H POC Glucose Calcium 7.9 L 8.0 L POC WB Ioniz Calcium Phosphorus 1.3 L Magnesium Total Bilirubin 1.3 H Direct Bilirubin 0.7 H GGT 139 H AST 61 H Lactate Dehydrogenase 293 H Albumin 2.5 L Globulin Albumin/Globulin Ratio 0.7 L Urine Appearance Urine Protein Urine Occult Blood Urine Urobilinogen Ur Leukocyte Esterase Urine WBC Urine Bacteria Hyaline Casts Ethyl Alcohol g/dL 10/18/21 10/18/21 10/17/21 05:30 05:29 20:51 WBC RBC 2.30 L Hgb 8.3 L Hct 22.3 L POC Hct MCV MCH 36.1 H MCHC 37.2 H RDW 17.2 H Plt Count 69 L MPV 11.1 H Immature Gran % (Auto) Neut % (Auto) 78.3 H Lymph % (Auto) 12.9 L [place] % (Auto) Lymph # (Auto) 0.66 L PT INR POC Sodium Sodium POC Potassium Potassium 1.9 L* POC Chloride Chloride 90 L BUN Creatinine POC Creatinine Glucose POC Glucose Calcium 7.4 L POC WB Ioniz Calcium Phosphorus Magnesium 1.1 L Total Bilirubin 2.4 H Direct Bilirubin 1.2 H GGT 160 H 181 H AST 73 H Lactate Dehydrogenase 338 H Albumin 2.7 L Globulin 4.0 H Albumin/Globulin Ratio 0.7 L Urine Appearance Urine Protein Urine Occult Blood Urine Urobilinogen Ur Leukocyte Esterase Urine WBC Urine Bacteria Hyaline Casts Ethyl Alcohol g/dL 10/17/21 10/17/21 10/17/21 20:47 20:27 17:26 WBC RBC Hgb Hct POC Hct 29.0 L MCV MCH MCHC RDW Plt Count MPV Immature Gran % (Auto) Neut % (Auto) Lymph % (Auto) [place] % (Auto) Lymph # (Auto) PT INR POC Sodium 130 L Sodium 129 L POC Potassium < 2.0 L* Potassium 2.0 L* POC Chloride 82 L Chloride 86 L BUN Creatinine 1.5 H POC Creatinine 2.2 H Glucose 116 H POC Glucose 118 H Calcium 7.5 L POC WB Ioniz Calcium 0.89 L Phosphorus Magnesium Total Bilirubin Direct Bilirubin GGT AST Lactate Dehydrogenase Albumin Globulin Albumin/Globulin Ratio Urine Appearance Slightly cloudy A Urine Protein Trace A Urine Occult Blood Moderate A Urine Urobilinogen 2.0 e.u./dl A Ur Leukocyte Esterase Small A Urine WBC 37 H Urine Bacteria Many A Hyaline Casts 11 H Ethyl Alcohol g/dL 10/17/21 10/17/21 10/17/21 17:20 17:20 17:20 WBC RBC Hgb Hct POC Hct MCV MCH MCHC RDW Plt Count MPV Immature Gran % (Auto) Neut % (Auto) Lymph % (Auto) [place] % (Auto) Lymph # (Auto) PT 15.9 H INR 1.2 H POC Sodium Sodium POC Potassium Potassium POC Chloride Chloride BUN Creatinine POC Creatinine Glucose POC Glucose Calcium POC WB Ioniz Calcium Phosphorus 1.1 L Magnesium 1.0 L Total Bilirubin Direct Bilirubin GGT AST Lactate Dehydrogenase Albumin Globulin Albumin/Globulin Ratio Urine Appearance Urine Protein Urine Occult Blood Urine Urobilinogen Ur Leukocyte Esterase Urine WBC Urine Bacteria Hyaline Casts Ethyl Alcohol g/dL 10/17/21 10/17/21 10/17/21 17:20 17:20 17:20 WBC RBC 2.63 L Hgb 9.2 L Hct 25.8 L POC Hct MCV MCH 35.0 H MCHC RDW 17.0 H Plt Count 75 L MPV 10.9 H Immature Gran % (Auto) 0.7 H Neut % (Auto) Lymph % (Auto) 10.5 L [place] % (Auto) Lymph # (Auto) 0.75 L PT INR POC Sodium Sodium POC Potassium Potassium POC Chloride Chloride BUN Creatinine POC Creatinine Glucose POC Glucose Calcium POC WB Ioniz Calcium Phosphorus Magnesium Total Bilirubin 2.6 H Direct Bilirubin 1.2 H GGT AST 91 H Lactate Dehydrogenase Albumin 3.1 L Globulin 4.4 H Albumin/Globulin Ratio Urine Appearance Urine Protein Urine Occult Blood Urine Urobilinogen Ur Leukocyte Esterase Urine WBC Urine Bacteria Hyaline Casts Ethyl Alcohol g/dL 0.186 H Meds: Medications Acetaminophen (Acetaminophen 325 Mg Tablet) 650 mg PO Q6HP PRN; Protocol PRN Reason: Per Pain Protocol/Fever > 101 Albuterol/Ipratropium (Ipratropium/Albuterol 3 Ml Ampul.Neb) 3 ml NEB Q4HP PRN PRN Reason: Shortness Of Breath Ceftriaxone Sodium (Ceftriaxone 1 Gm Vial) 1 gm IV Q24H [facility]; Protocol Last Admin: 10/18/21 19:04 Dose: 1 gm Chlordiazepoxide HCl (Chlordiazepoxide 25 Mg Capsule) 25 mg PO Q4HP PRN PRN Reason: Alcohol Withdrawal/Assess CIWA Last Admin: 10/18/21 20:29 Dose: 25 mg Diazepam (Diazepam 10 Mg/2 Ml Syringe) 5 - 10 mg IV Q2HP PRN PRN Reason: Alcohol Withdrawal/Assess CIWA Enoxaparin Sodium (Enoxaparin 40 Mg/0.4 Ml Syringe) 40 mg SQ DAILY [facility] Last Admin: 10/18/21 09:03 Dose: 40 mg Famotidine (Famotidine 20 Mg Tablet) 20 mg PO BID [facility] Last Admin: 10/18/21 20:29 Dose: 20 mg Folic Acid (Folic Acid 1 Mg Tablet) 1 mg PO DAILY [facility] Last Admin: 10/18/21 09:03 Dose: 1 mg Potassium Chloride 40 meq/ (Dextrose) 520 mls @ 130 mls/hr IV UD PRN PRN Reason: Potassium < 3 Last Infusion: 10/18/21 13:10 Dose: Infused Magnesium Sulfate (Magnesium Sulfate) 2 gm in 50 mls @ 50 mls/hr IV UD PRN PRN Reason: Magnesium </= 1.6 Last Infusion: 10/18/21 09:10 Dose: Infused Thiamine HCl 100 mg/ Sodium (Chloride) 51 mls @ 50 mls/hr IV DAILY [facility] Last Infusion: 10/18/21 10:06 Dose: Infused Iron Carb/Multivit/[place]/Folic Acid (Multivit,Ther Iron,Ca,Fa & Min 1 Tablet) 1 tab PO DAILY [facility] Last Admin: 10/18/21 09:03 Dose: 1 tab Ondansetron HCl (Ondansetron 4 Mg/2 Ml Vial) 4 mg IV Q4HP PRN PRN Reason: Nausea And Vomiting Polyethylene Glycol (Polyethylene Glycol 3350 17 Gm Packet) 17 gm PO DAILYP PRN PRN Reason: Constipation Potassium Chloride (Potassium Chloride 20 Meq Tablet) 40 meq PO UD PRN PRN Reason: Potssium is 3-3.5 Potassium Chloride (Potassium Chloride 20 Meq Tablet) 40 meq PO UD PRN PRN Reason: Potassium < 3 Last Admin: 10/19/21 07:23 Dose: 40 meq Senna (Sennosides 1 Tablet) 2 tab PO DAILYP PRN PRN Reason: Constipation Sodium Chloride (0.9 % Sodium Chloride 10 Ml Syringe) 10 ml IV Q8 EDITH Last Admin: 10/19/21 05:58 Dose: 10 ml A/P Narrative A/P Narrative: A: *Ataxia, 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 Responded to IVF in the ED, then needed bolus in ICU *Anemia,macrocytosis: 2/2 etoh. -acute on chronic likely dilutional, but check FOBT *Hyperbilirubinemia/Hypoalbuminemia/Thrombocytopenia likely sequelae of alcohol use and likely developing liver disease -Fatty liver per u/s *EVAN: 2/2 above, improved *Tobacco abuse: *COPD: *UTI (GNB): P: -monitor UOP -Thiamine/vitamins -cont Electrolyte replacement for severe deficits -ciwa, prn benzo -Dietary consult -Rocephin pending UC -fobt -check am cortisol for continued soft BP -pt/ot -Smoking cessation counseling -Referral to follow with Dr. Pak -ppx: lovenox (as long ast PLTs>50k) full code Time Spent With Patient Time: Total time spent is greater than 50% in coordination of care (as documented) at patient's floor/unit and/or counseling patient: Total time spent with greater than 50% in coordination of care (as documented) at patient's floor/unit and/or counseling patient:: 35 - 50 minutes
[2021-10-19] MEDS: FOLIC ACID 1 MG TABLET PO SCH (08:38)
[2021-10-19] MEDS: MULTIVIT,THER IRON,CA,FA & MIN 1 TABLET PO SCH (08:38)
[2021-10-19] MEDS: ENOXAPARIN 40 MG/0.4 ML SYRINGE SQ SCH (08:38)
[2021-10-19] MEDS: cefTRIAXone 1 GM VIAL IV SCH (08:39)
[2021-10-19] MEDS: FAMOTIDINE 20 MG TABLET PO SCH ×2 (08:39→20:58)
[2021-10-19] MEDS: THIAMINE 100 MG in 0.9 % SODIUM CHLORIDE 50 ML IV SCH (09:09)
[2021-10-19 17:12] LABS: Blood Urea Nitrogen 23 mg/dL (6-20); Carbon Dioxide 30 mmol/L (22-30); Chloride 92 mmol/L (96-108); Glomerular Filtration Rate 82; Glucose 118 mg/dL (70-105); Phosphorous 2.1 mg/dL (2.5-4.5)
[2021-10-20] MEDS: 0.9 % SODIUM CHLORIDE 10 ML SYRINGE IV SCH ×3 (05:45→20:41)
[2021-10-20 06:29] LABS: ALT/SGPT 12 U/L (<40); AST/SGOT 52 U/L (<40); Albumin 2.4 gm/dL (3.2-5.2); Albumin/Globulin Ratio 0.6 (1.0-2.3); Alkaline Phosphatase 101 U/L (39-117); Bilirubin,Direct 0.5 mg/dL (<0.3); Bilirubin,Total 0.9 mg/dL (0.1-1.0); Blood Urea Nitrogen 15 mg/dL (6-20); Calcium 8.4 mg/dL (8.6-10.4); Carbon Dioxide 31 mmol/L (22-30); Chloride 92 mmol/L (96-108); Globulin 3.8 gm/dL (2.2-3.7); Glomerular Filtration Rate 98; Glucose 100 mg/dL (70-105); Lactate Dehydrogenase 302 U/L (135-225); Triglycerides 80 mg/dL (<150)
[2021-10-20] MEDS: FAMOTIDINE 20 MG TABLET PO SCH ×2 (08:16→20:41)
[2021-10-20] MEDS: MULTIVIT,THER IRON,CA,FA & MIN 1 TABLET PO SCH (08:16)
[2021-10-20] MEDS: ENOXAPARIN 40 MG/0.4 ML SYRINGE SQ SCH (08:16)
[2021-10-20] MEDS: FOLIC ACID 1 MG TABLET PO SCH (08:16)
[2021-10-20] MEDS: cefTRIAXone 1 GM VIAL IV SCH (08:16)
[2021-10-20] MEDS: POTASSIUM CHLORIDE 20 MEQ TABLET PO PRN (08:16)
[2021-10-20] MEDS: NITROFURANTOIN SR 100 MG CAPSULE PO SCH ×2 (10:21→20:40)
[2021-10-20] MEDS: MAGNESIUM SULFATE 2 GM/50 ML BAG IV PRN (10:22)
[2021-10-20] MEDS: THIAMINE 100 MG in 0.9 % SODIUM CHLORIDE 50 ML IV SCH (10:22)
--- NOTE | 2021-10-20 11:43 | Internal Med Progress Note ---
SUBJECTIVE Subjective Patient information: Note initiated : 10/20/21 at 11:41 am Service Date, if different from initiated Date: [] Patient: Jimi Mann 56 y/o M admitted on 10/17/21 for Weakness. Chief Complaint: [EtoH abuse] Principal diagnosis: EtOH abuse, severe electrolyte derangements, complicated UTI Interval history: The patient was resting comfortably in bed. He had no active complaints or concerns. Discussed the case with the RN. Constitutional Vitals: Vital Signs Temp Pulse Resp BP Pulse Ox O2 Del Method O2 Flow Rate 97.8 F 86 20 139/88 96 0 10/20/21 08:01 10/19/21 15:19 10/20/21 04:01 10/20/21 08:01 10/20/21 08:01 10/19/21 20:00 10/20/21 08:01 Period Temp Pulse Resp BP Sys/Vaughn Pulse Ox O2 Del Method O2 Flow Rate Last 24 Hr 97.8 F-98.8 F 86 16-20 88-139/52-88 93-96 Room Air 0 Intake and Output 10/19/21 10/20/21 10/20/21 21:59 05:59 13:59 Intake Total 1750 420 581 Output Total 500 1200 575 Balance 1250 -780 6 Weight 69.626 kg Intake & Output: Intake & Output 10/19/21 10/20/21 10/20/21 21:59 05:59 13:59 Intake Total 1750 420 581 Output Total 500 1200 575 Balance 1250 -780 6 Weight 69.626 kg Intake: Nourishment/Supplement quantity 240 (ml) IV 1030 101 Potassium Chloride 60 Meq In 1030 Dextrose 5% in Water 1,000 ml @ 130 mls/hr IV ONCE ONE Rx#: [id number] Vitamin B1 100 mg In Sodium 51 Chloride 0.9% 50 ml @ 50 mls/hr IV DAILY [facility] Rx#:[id number] Oral 480 420 480 Output: Urine Catheter Amount 100 Void Amount 400 1200 575 Other: Meal Dinner Breakfast Percent of Meal Consumed 75% 100% Feeding Ability Assist with Tray Set Up Independent Nourishment/Supplement name ensure Urine Appearance Clear Clear Clear Urine Color Light [place] Pale Pale Urine Odor Normal Stool Size Moderate Stool Color Brown Stool Consistency Soft # of times incontinent of 1 Bowels Head Head exam: Present atraumatic and normal inspection Eye Eye exam: Present normal appearance ENT ENT exam: Present mucous membranes moist, normal exam and normal external ear exam Neck Neck exam: Present normal inspection Respiratory Respiratory exam: Present normal respiratory exam Cardiovascular Cardiovascular exam: Present normal rate and rhythm GI/Abdominal GI/Abdominal exam: Present normal bowel sounds Back Exam Back exam: Present normal inspection Neurological Exam Neurological exam: Present alert and oriented X3 Skin Skin exam: Present intact and warm OBJ DATA Labs CBC & Chem 7: 10/19/21 05:27 10/20/21 05:26 Labs: Abnormal Lab Results 10/20/21 10/19/21 10/19/21 05:26 16:14 05:27 WBC RBC Hgb Hct POC Hct MCV MCH MCHC RDW Plt Count MPV Immature Gran % (Auto) Neut % (Auto) Lymph % (Auto) [place] % (Auto) Lymph # (Auto) PT INR POC Sodium Sodium 132 L 132 L POC Potassium Potassium 3.0 L 3.2 L 2.5 L* POC Chloride Chloride 92 L 92 L 93 L Carbon Dioxide 31 H BUN 23 H Creatinine POC Creatinine Glucose 118 H 126 H POC Glucose Calcium 8.4 L 8.0 L 7.9 L POC WB Ioniz Calcium Phosphorus 2.0 L 2.1 L 1.3 L Magnesium 1.4 L Total Bilirubin 1.3 H Direct Bilirubin 0.5 H 0.7 H GGT 133 H 139 H AST 52 H 61 H Lactate Dehydrogenase 302 H 293 H Albumin 2.4 L 2.5 L Globulin 3.8 H Albumin/Globulin Ratio 0.6 L 0.7 L Urine Appearance Urine Protein Urine Occult Blood Urine Urobilinogen Ur Leukocyte Esterase Urine WBC Urine Bacteria Hyaline Casts Ethyl Alcohol g/dL 10/19/21 10/18/21 10/18/21 05:27 15:10 05:30 WBC 3.9 L RBC 2.17 L 2.30 L Hgb 7.7 L 8.3 L Hct 22.0 L 22.3 L POC Hct MCV 101.4 H MCH 35.5 H 36.1 H MCHC 37.2 H RDW 17.6 H 17.2 H Plt Count 86 L 69 L MPV 10.5 H 11.1 H Immature Gran % (Auto) Neut % (Auto) 78.3 H Lymph % (Auto) 12.9 L [place] % (Auto) 13.1 H Lymph # (Auto) 0.75 L 0.66 L PT INR POC Sodium Sodium 131 L POC Potassium Potassium 2.7 L* POC Chloride Chloride 88 L Carbon Dioxide BUN 21 H Creatinine POC Creatinine Glucose 110 H POC Glucose Calcium 8.0 L POC WB Ioniz Calcium Phosphorus Magnesium Total Bilirubin Direct Bilirubin GGT AST Lactate Dehydrogenase Albumin Globulin Albumin/Globulin Ratio Urine Appearance Urine Protein Urine Occult Blood Urine Urobilinogen Ur Leukocyte Esterase Urine WBC Urine Bacteria Hyaline Casts Ethyl Alcohol g/dL 10/18/21 10/17/21 10/17/21 05:29 20:51 20:47 WBC RBC Hgb Hct POC Hct MCV MCH MCHC RDW Plt Count MPV Immature Gran % (Auto) Neut % (Auto) Lymph % (Auto) [place] % (Auto) Lymph # (Auto) PT INR POC Sodium Sodium 129 L POC Potassium Potassium 1.9 L* 2.0 L* POC Chloride Chloride 90 L 86 L Carbon Dioxide BUN Creatinine 1.5 H POC Creatinine Glucose 116 H POC Glucose Calcium 7.4 L 7.5 L POC WB Ioniz Calcium Phosphorus Magnesium 1.1 L Total Bilirubin 2.4 H Direct Bilirubin 1.2 H GGT 160 H 181 H AST 73 H Lactate Dehydrogenase 338 H Albumin 2.7 L Globulin 4.0 H Albumin/Globulin Ratio 0.7 L Urine Appearance Urine Protein Urine Occult Blood Urine Urobilinogen Ur Leukocyte Esterase Urine WBC Urine Bacteria Hyaline Casts Ethyl Alcohol g/dL 10/17/21 10/17/21 10/17/21 20:27 17:26 17:20 WBC RBC Hgb Hct POC Hct 29.0 L MCV MCH MCHC RDW Plt Count MPV Immature Gran % (Auto) Neut % (Auto) Lymph % (Auto) [place] % (Auto) Lymph # (Auto) PT 15.9 H INR 1.2 H POC Sodium 130 L Sodium POC Potassium < 2.0 L* Potassium POC Chloride 82 L Chloride Carbon Dioxide BUN Creatinine POC Creatinine 2.2 H Glucose POC Glucose 118 H Calcium POC WB Ioniz Calcium 0.89 L Phosphorus Magnesium Total Bilirubin Direct Bilirubin GGT AST Lactate Dehydrogenase Albumin Globulin Albumin/Globulin Ratio Urine Appearance Slightly cloudy A Urine Protein Trace A Urine Occult Blood Moderate A Urine Urobilinogen 2.0 e.u./dl A Ur Leukocyte Esterase Small A Urine WBC 37 H Urine Bacteria Many A Hyaline Casts 11 H Ethyl Alcohol g/dL 10/17/21 10/17/21 10/17/21 17:20 17:20 17:20 WBC RBC Hgb Hct POC Hct MCV MCH MCHC RDW Plt Count MPV Immature Gran % (Auto) Neut % (Auto) Lymph % (Auto) [place] % (Auto) Lymph # (Auto) PT INR POC Sodium Sodium POC Potassium Potassium POC Chloride Chloride Carbon Dioxide BUN Creatinine POC Creatinine Glucose POC Glucose Calcium POC WB Ioniz Calcium Phosphorus 1.1 L Magnesium 1.0 L Total Bilirubin 2.6 H Direct Bilirubin 1.2 H GGT AST 91 H Lactate Dehydrogenase Albumin 3.1 L Globulin 4.4 H Albumin/Globulin Ratio Urine Appearance Urine Protein Urine Occult Blood Urine Urobilinogen Ur Leukocyte Esterase Urine WBC Urine Bacteria Hyaline Casts Ethyl Alcohol g/dL 10/17/21 10/17/21 17:20 17:20 WBC RBC 2.63 L Hgb 9.2 L Hct 25.8 L POC Hct MCV MCH 35.0 H MCHC RDW 17.0 H Plt Count 75 L MPV 10.9 H Immature Gran % (Auto) 0.7 H Neut % (Auto) Lymph % (Auto) 10.5 L [place] % (Auto) Lymph # (Auto) 0.75 L PT INR POC Sodium Sodium POC Potassium Potassium POC Chloride Chloride Carbon Dioxide BUN Creatinine POC Creatinine Glucose POC Glucose Calcium POC WB Ioniz Calcium Phosphorus Magnesium Total Bilirubin Direct Bilirubin GGT AST Lactate Dehydrogenase Albumin Globulin Albumin/Globulin Ratio Urine Appearance Urine Protein Urine Occult Blood Urine Urobilinogen Ur Leukocyte Esterase Urine WBC Urine Bacteria Hyaline Casts Ethyl Alcohol g/dL 0.186 H Meds: Medications Acetaminophen (Acetaminophen 325 Mg Tablet) 650 mg PO Q6HP PRN; Protocol PRN Reason: Per Pain Protocol/Fever > 101 Albuterol/Ipratropium (Ipratropium/Albuterol 3 Ml Ampul.Neb) 3 ml NEB Q4HP PRN PRN Reason: Shortness Of Breath Chlordiazepoxide HCl (Chlordiazepoxide 25 Mg Capsule) 25 mg PO Q4HP PRN PRN Reason: Alcohol Withdrawal/Assess CIWA Last Admin: 10/18/21 20:29 Dose: 25 mg Diazepam (Diazepam 10 Mg/2 Ml Syringe) 5 - 10 mg IV Q2HP PRN PRN Reason: Alcohol Withdrawal/Assess CIWA Enoxaparin Sodium (Enoxaparin 40 Mg/0.4 Ml Syringe) 40 mg SQ DAILY [facility] Last Admin: 10/20/21 08:16 Dose: 40 mg Famotidine (Famotidine 20 Mg Tablet) 20 mg PO BID [facility] Last Admin: 10/20/21 08:16 Dose: 20 mg Folic Acid (Folic Acid 1 Mg Tablet) 1 mg PO DAILY [facility] Last Admin: 10/20/21 08:16 Dose: 1 mg Potassium Chloride 40 meq/ (Dextrose) 520 mls @ 130 mls/hr IV UD PRN PRN Reason: Potassium < 3 Last Infusion: 10/18/21 13:10 Dose: Infused Magnesium Sulfate (Magnesium Sulfate) 2 gm in 50 mls @ 50 mls/hr IV UD PRN PRN Reason: Magnesium </= 1.6 Last Infusion: 10/20/21 11:37 Dose: Infused Thiamine HCl 100 mg/ Sodium (Chloride) 51 mls @ 50 mls/hr IV DAILY [facility] Last Infusion: 10/20/21 11:37 Dose: Infused Iron Carb/Multivit/[place]/Folic Acid (Multivit,Ther Iron,Ca,Fa & Min 1 Tablet) 1 tab PO DAILY [facility] Last Admin: 10/20/21 08:16 Dose: 1 tab Nitrofurantoin Macrocrystals (Nitrofurantoin Sr 100 Mg Capsule) 100 mg PO BID [facility] Last Admin: 10/20/21 10:21 Dose: 100 mg Ondansetron HCl (Ondansetron 4 Mg/2 Ml Vial) 4 mg IV Q4HP PRN PRN Reason: Nausea And Vomiting Polyethylene Glycol (Polyethylene Glycol 3350 17 Gm Packet) 17 gm PO DAILYP PRN PRN Reason: Constipation Potassium Chloride (Potassium Chloride 20 Meq Tablet) 40 meq PO UD PRN PRN Reason: Potssium is 3-3.5 Last Admin: 10/20/21 08:16 Dose: 40 meq Potassium Chloride (Potassium Chloride 20 Meq Tablet) 40 meq PO UD PRN PRN Reason: Potassium < 3 Last Admin: 10/19/21 07:23 Dose: 40 meq Senna (Sennosides 1 Tablet) 2 tab PO DAILYP PRN PRN Reason: Constipation Sodium Chloride (0.9 % Sodium Chloride 10 Ml Syringe) 10 ml IV Q8 [facility] Last Admin: 10/20/21 05:45 Dose: 10 ml A/P Narrative A/P Narrative: A: *Ataxia, 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 Responded to IVF in the ED, then needed bolus in ICU *Anemia,macrocytosis: 2/2 etoh. -acute on chronic likely dilutional, but check FOBT *Hyperbilirubinemia/Hypoalbuminemia/Thrombocytopenia likely sequelae of alcohol use and likely developing liver disease -Fatty liver per u/s *EVAN: 2/2 above, improved *Tobacco abuse: *COPD: *UTI (GNB): P: -monitor UOP -Thiamine/vitamins -cont Electrolyte replacement for severe deficits -CIWA, prn benzo -Dietary consult -Rocephin pending UC-> positive for E.Coli, switched to macrobid 10/20 -fobt -check am cortisol for continued soft BP -pt/ot -Smoking cessation counseling -Referral to follow with Dr. Pak (CD counseling) -ppx: lovenox (as long ast PLTs>50k) full code Time Spent With Patient Time: Total time spent is greater than 50% in coordination of care (as documented) at patient's floor/unit and/or counseling patient: Total time spent with greater than 50% in coordination of care (as documented) at patient's floor/unit and/or counseling patient:: 25 - 35 minutes
[2021-10-21] MEDS: 0.9 % SODIUM CHLORIDE 10 ML SYRINGE IV SCH ×3 (05:59→20:05)
[2021-10-21 06:43] LABS: Blood Urea Nitrogen 28 mg/dL (6-20); Carbon Dioxide 31 mmol/L (22-30); Chloride 93 mmol/L (96-108); Glomerular Filtration Rate 98; Glucose 116 mg/dL (70-105); Phosphorous 3.1 mg/dL (2.5-4.5)
[2021-10-21 06:48] LABS: Basophils # (Auto) 0.08 K/mcL (0.00-0.30); Basophils % (Auto) 1.6 % (0.0-2.0); Eosinophils # (Auto) 0.12 K/mcL (0.00-0.70); Eosinophils % (Auto) 2.4 % (0.0-7.0); Hematocrit 22.7 % (40.1-51.0); Hemoglobin 7.9 g/dL (13.7-17.5); Mean Cell Volume 101.8 fL (80.0-100.0); Mean Corpuscular HGB Conc 34.8 g/dL (31.0-36.0); Mean Platelet Volume 10.3 fL (7.4-10.4); Monocytes # (Auto) 1.17 K/mcL (0.10-0.90); Monocytes % (Auto) 23.4 % (1.0-12.0); Neutrophils % (Auto) 49.6 % (38.0-78.0); Platelet Count 176 K/mcL (140-440); RBC 2.23 M/mcL (4.63-6.08); Red Cell Distribution Width 18.6 % (11.5-14.5)
[2021-10-21] MEDS: FAMOTIDINE 20 MG TABLET PO SCH ×2 (08:18→20:05)
[2021-10-21] MEDS: POTASSIUM CHLORIDE 20 MEQ TABLET PO PRN (08:18)
[2021-10-21] MEDS: NITROFURANTOIN SR 100 MG CAPSULE PO SCH ×2 (08:18→20:05)
[2021-10-21] MEDS: MULTIVIT,THER IRON,CA,FA & MIN 1 TABLET PO SCH (08:18)
[2021-10-21] MEDS: ENOXAPARIN 40 MG/0.4 ML SYRINGE SQ SCH (08:18)
[2021-10-21] MEDS: FOLIC ACID 1 MG TABLET PO SCH (08:18)
[2021-10-21] MEDS: MAGNESIUM SULFATE 2 GM/50 ML BAG IV PRN (09:05)
[2021-10-21] MEDS ORDERED: MAGNESIUM SULFATE 2 GM/50 ML BAG IV ONE (09:15)
[2021-10-21] MEDS ORDERED: MAGNESIUM SULFATE 2 GM/50 ML BAG IV SCH (10:30)
--- NOTE | 2021-10-21 10:46 | Internal Med Progress Note ---
SUBJECTIVE Subjective Patient information: Note initiated : 10/21/21 at 10:44 am Service Date, if different from initiated Date: [] Patient: Jimi Mann 56 y/o M admitted on 10/17/21 for Weakness. Chief Complaint: [] Principal diagnosis: EtOH abuse, severe electrolyte derangements, complicated UTI Interval history: The patient was resting comfortably in bed. He had no active complaints or concerns. We discussed disposition and he seemed to be agreeable to snf facility. RN was present at the bedside to discuss plan of care. Constitutional Vitals: Vital Signs Temp Pulse Resp BP Pulse Ox O2 Del Method O2 Flow Rate 98.9 F 86 19 110/67 97 0 10/21/21 07:24 10/19/21 15:19 10/21/21 07:24 10/21/21 07:24 10/21/21 07:24 10/20/21 20:00 10/20/21 18:19 Period Temp Pulse Resp BP Sys/Vaughn Pulse Ox O2 Del Method O2 Flow Rate Last 24 Hr 98.9 F-100.0 F 16-20 110-138/67-83 95-97 Room Air 0-0 Intake and Output 10/20/21 10/21/21 10/21/21 21:59 05:59 13:59 Intake Total 150 640 770 Output Total 750 1345 125 Balance -600 -705 645 Weight 73.799 kg Intake & Output: Intake & Output 10/20/21 10/21/21 10/21/21 21:59 05:59 13:59 Intake Total 150 640 770 Output Total 750 1345 125 Balance -600 -705 645 Weight 73.799 kg Intake: Nourishment/Supplement quantity 720 (ml) IV 50 Oral 150 640 Output: Void Amount 750 1345 125 Other: Meal Nourishment/Supplement Percent of Meal Consumed 100% Nourishment/Supplement name ensure Urine Appearance Clear Clear Clear Urine Color Pale Pale Yellow Stool Size Moderate Moderate Stool Color Brown Brown Stool Consistency Soft Formed Formed # Bowel Movements 1 1 Head Head exam: Present atraumatic and normal inspection Eye Eye exam: Present normal appearance ENT ENT exam: Present mucous membranes moist, normal exam and normal external ear exam Neck Neck exam: Present normal inspection Respiratory Respiratory exam: Present normal respiratory exam Cardiovascular Cardiovascular exam: Present normal rate and rhythm GI/Abdominal GI/Abdominal exam: Present normal bowel sounds Back Exam Back exam: Present normal inspection Neurological Exam Neurological exam: Present alert and oriented X3 Skin Skin exam: Present intact and warm OBJ DATA Labs CBC & Chem 7: 10/21/21 05:04 10/21/21 05:04 Labs: Abnormal Lab Results 10/21/21 10/21/21 10/20/21 05:04 05:04 05:26 WBC RBC 2.23 L Hgb 7.9 L Hct 22.7 L MCV 101.8 H MCH 35.4 H RDW 18.6 H Plt Count MPV Immature Gran % (Auto) 1.0 H [place] % (Auto) 23.4 H Lymph # (Auto) 1.10 L [place] # (Auto) 1.17 H Sodium 132 L Potassium 3.2 L 3.0 L Chloride 93 L 92 L Carbon Dioxide 31 H 31 H BUN 28 H Glucose 116 H Calcium 8.4 L Phosphorus 2.0 L Magnesium 1.5 L 1.4 L Total Bilirubin Direct Bilirubin 0.5 H GGT 133 H AST 52 H Lactate Dehydrogenase 302 H Albumin 2.4 L Globulin 3.8 H Albumin/Globulin Ratio 0.6 L 10/19/21 10/19/21 10/19/21 16:14 05:27 05:27 WBC 3.9 L RBC 2.17 L Hgb 7.7 L Hct 22.0 L MCV 101.4 H MCH 35.5 H RDW 17.6 H Plt Count 86 L MPV 10.5 H Immature Gran % (Auto) [place] % (Auto) 13.1 H Lymph # (Auto) 0.75 L [place] # (Auto) Sodium 132 L Potassium 3.2 L 2.5 L* Chloride 92 L 93 L Carbon Dioxide BUN 23 H Glucose 118 H 126 H Calcium 8.0 L 7.9 L Phosphorus 2.1 L 1.3 L Magnesium Total Bilirubin 1.3 H Direct Bilirubin 0.7 H GGT 139 H AST 61 H Lactate Dehydrogenase 293 H Albumin 2.5 L Globulin Albumin/Globulin Ratio 0.7 L 10/18/21 15:10 WBC RBC Hgb Hct MCV MCH RDW Plt Count MPV Immature Gran % (Auto) [place] % (Auto) Lymph # (Auto) [place] # (Auto) Sodium 131 L Potassium 2.7 L* Chloride 88 L Carbon Dioxide BUN 21 H Glucose 110 H Calcium 8.0 L Phosphorus Magnesium Total Bilirubin Direct Bilirubin GGT AST Lactate Dehydrogenase Albumin Globulin Albumin/Globulin Ratio Meds: Medications Acetaminophen (Acetaminophen 325 Mg Tablet) 650 mg PO Q6HP PRN; Protocol PRN Reason: Per Pain Protocol/Fever > 101 Albuterol/Ipratropium (Ipratropium/Albuterol 3 Ml Ampul.Neb) 3 ml NEB Q4HP PRN PRN Reason: Shortness Of Breath Enoxaparin Sodium (Enoxaparin 40 Mg/0.4 Ml Syringe) 40 mg SQ DAILY [facility] Last Admin: 10/21/21 08:18 Dose: 40 mg Famotidine (Famotidine 20 Mg Tablet) 20 mg PO BID [facility] Last Admin: 10/21/21 08:18 Dose: 20 mg Folic Acid (Folic Acid 1 Mg Tablet) 1 mg PO DAILY [facility] Last Admin: 10/21/21 08:18 Dose: 1 mg Potassium Chloride 40 meq/ (Dextrose) 520 mls @ 130 mls/hr IV UD PRN PRN Reason: Potassium < 3 Last Infusion: 10/18/21 13:10 Dose: Infused Magnesium Sulfate (Magnesium Sulfate) 2 gm in 50 mls @ 50 mls/hr IV UD PRN PRN Reason: Magnesium </= 1.6 Last Infusion: 10/21/21 10:11 Dose: Infused Magnesium Sulfate (Magnesium Sulfate) 2 gm in 50 mls @ 25 mls/hr IV 1030 [facility] Stop: 10/21/21 13:00 Last Admin: 10/21/21 10:14 Dose: 25 mls/hr Iron Carb/Multivit/Viola/Folic Acid (Multivit,Ther Iron,Ca,Fa & Min 1 Tablet) 1 tab PO DAILY [facility] Last Admin: 10/21/21 08:18 Dose: 1 tab Nitrofurantoin Macrocrystals (Nitrofurantoin Sr 100 Mg Capsule) 100 mg PO BID [facility] Last Admin: 10/21/21 08:18 Dose: 100 mg Ondansetron HCl (Ondansetron 4 Mg/2 Ml Vial) 4 mg IV Q4HP PRN PRN Reason: Nausea And Vomiting Polyethylene Glycol (Polyethylene Glycol 3350 17 Gm Packet) 17 gm PO DAILYP PRN PRN Reason: Constipation Potassium Chloride (Potassium Chloride 20 Meq Tablet) 40 meq PO UD PRN PRN Reason: Potssium is 3-3.5 Last Admin: 10/21/21 08:18 Dose: 40 meq Potassium Chloride (Potassium Chloride 20 Meq Tablet) 40 meq PO UD PRN PRN Reason: Potassium < 3 Last Admin: 10/19/21 07:23 Dose: 40 meq Senna (Sennosides 1 Tablet) 2 tab PO DAILYP PRN PRN Reason: Constipation Sodium Chloride (0.9 % Sodium Chloride 10 Ml Syringe) 10 ml IV Q8 [facility] Last Admin: 10/21/21 05:59 Dose: 10 ml A/P Narrative A/P Narrative: A: *Ataxia, 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 Responded to IVF in the ED, then needed bolus in ICU *Anemia,macrocytosis: 2/2 etoh. -acute on chronic likely dilutional, but check FOBT *Hyperbilirubinemia/Hypoalbuminemia/Thrombocytopenia likely sequelae of alcohol use and likely developing liver disease -Fatty liver per u/s *EVAN: 2/2 above, improved *Tobacco abuse: *COPD: *UTI (GNB): P: -monitor UOP -Thiamine/vitamins -cont Electrolyte replacement for severe deficits -CIWA, prn benzo-> D/C 10/21 -Dietary consult -Rocephin pending UC-> positive for E.Coli, switched to macrobid 10/20 -fobt -check am cortisol for continued soft BP -pt/ot -Smoking cessation counseling -Referral to follow with Dr. Pak (CD counseling) -ppx: lovenox (as long ast PLTs>50k) full code Time Spent With Patient Time: Total time spent is greater than 50% in coordination of care (as documented) at patient's floor/unit and/or counseling patient: Total time spent with greater than 50% in coordination of care (as documented) at patient's floor/unit and/or counseling patient:: 25 - 35 minutes
[2021-10-22] MEDS: 0.9 % SODIUM CHLORIDE 10 ML SYRINGE IV SCH ×3 (04:21→20:07)
[2021-10-22] MEDS: FOLIC ACID 1 MG TABLET PO SCH (08:48)
[2021-10-22] MEDS: FAMOTIDINE 20 MG TABLET PO SCH ×2 (08:48→20:06)
[2021-10-22] MEDS: NITROFURANTOIN SR 100 MG CAPSULE PO SCH ×2 (08:48→20:06)
[2021-10-22] MEDS: MULTIVIT,THER IRON,CA,FA & MIN 1 TABLET PO SCH (08:49)
[2021-10-22] MEDS: ENOXAPARIN 40 MG/0.4 ML SYRINGE SQ SCH (08:49)
[2021-10-22 11:08] LABS: Basophils # (Auto) 0.07 K/mcL (0.00-0.30); Basophils % (Auto) 1.2 % (0.0-2.0); Eosinophils # (Auto) 0.13 K/mcL (0.00-0.70); Eosinophils % (Auto) 2.3 % (0.0-7.0); Hematocrit 26.5 % (40.1-51.0); Hemoglobin 8.9 g/dL (13.7-17.5); Lymphocytes # (Auto) 1.27 K/mcL (1.50-4.80); Lymphocytes % (Auto) 22.6 % (15.5-49.0); Mean Cell Volume 101.9 fL (80.0-100.0); Mean Corpuscular HGB Conc 33.6 g/dL (31.0-36.0); Mean Platelet Volume 9.9 fL (7.4-10.4); Monocytes # (Auto) 1.01 K/mcL (0.10-0.90); Monocytes % (Auto) 17.9 % (1.0-12.0); Neutrophils % (Auto) 54.9 % (38.0-78.0); Platelet Count 280 K/mcL (140-440); Red Cell Distribution Width 19.4 % (11.5-14.5); WBC 5.6 K/mcL (4.5-11.0)
[2021-10-22 11:35] LABS: Blood Urea Nitrogen 28 mg/dL (6-20); Calcium 9.3 mg/dL (8.6-10.4); Carbon Dioxide 29 mmol/L (22-30); Chloride 93 mmol/L (96-108); Glomerular Filtration Rate 73; Glucose 99 mg/dL (70-105)
--- NOTE | 2021-10-22 12:21 | Internal Med Progress Note ---
SUBJECTIVE Subjective Patient information: Note initiated : 10/22/21 at 12:20 pm Service Date, if different from initiated Date: [] Patient: Jimi Mann 56 y/o M admitted on 10/17/21 for Weakness. Chief Complaint: [] Principal diagnosis: EtOH abuse, severe electrolyte derangements, complicated UTI Interval history: The patient was ambulating using his cane this morning. He was coming from the bathroom. PT was present at the bedside. The patient has no other active complaints or concerns today. We discussed disposition. Constitutional Vitals: Vital Signs Temp Pulse Resp BP Pulse Ox O2 Del Method O2 Flow Rate 97.7 F 78 20 113/75 96 0 10/22/21 07:00 10/22/21 07:00 10/22/21 07:00 10/22/21 07:00 10/22/21 07:00 10/22/21 07:00 10/21/21 12:52 Period Temp Pulse Resp BP Sys/Vaughn Pulse Ox O2 Del Method O2 Flow Rate Last 24 Hr 97.7 F-99.3 F 78-94 18-28 98-124/63-83 90-96 Room Air-Room Air 0-0 Intake and Output 10/21/21 10/22/21 10/22/21 21:59 05:59 13:59 Intake Total 714 637 477 Output Total 600 550 Balance 114 87 477 Weight 72.303 kg Intake & Output: Intake & Output 10/21/21 10/22/21 10/22/21 21:59 05:59 13:59 Intake Total 714 637 477 Output Total 600 550 Balance 114 87 477 Weight 72.303 kg Intake: Nourishment/Supplement quantity 474 237 (ml) Oral 240 637 240 Output: Void Amount 600 550 Other: Meal Nourishment/Supplement Breakfast Percent of Meal Consumed 25% 100% Feeding Ability Independent Independent Nourishment/Supplement name glucerna Ensure Urine Appearance Clear Clear Urine Color Yellow Yellow Head Head exam: Present atraumatic and normal inspection Eye Eye exam: Present normal appearance ENT ENT exam: Present mucous membranes moist, normal exam and normal external ear exam Neck Neck exam: Present normal inspection Respiratory Respiratory exam: Present normal respiratory exam Cardiovascular Cardiovascular exam: Present normal rate and rhythm GI/Abdominal GI/Abdominal exam: Present normal bowel sounds Back Exam Back exam: Present normal inspection Neurological Exam Neurological exam: Present alert and oriented X3 Skin Skin exam: Present intact and warm OBJ DATA Labs CBC & Chem 7: 10/22/21 10:11 10/22/21 10:11 Labs: Abnormal Lab Results 10/22/21 10/22/21 10/21/21 10:11 10:11 05:04 RBC 2.60 L Hgb 8.9 L Hct 26.5 L MCV 101.9 H MCH 34.2 H RDW 19.4 H Immature Gran % (Auto) 1.1 H [place] % (Auto) 17.9 H Lymph # (Auto) 1.27 L [place] # (Auto) 1.01 H Immature Gran # 0.06 H Sodium Potassium 3.2 L Chloride 93 L 93 L Carbon Dioxide 31 H BUN 28 H 28 H Glucose 116 H Calcium Phosphorus Magnesium 1.5 L Direct Bilirubin GGT AST Lactate Dehydrogenase Albumin Globulin Albumin/Globulin Ratio 10/21/21 10/20/21 10/19/21 05:04 05:26 16:14 RBC 2.23 L Hgb 7.9 L Hct 22.7 L MCV 101.8 H MCH 35.4 H RDW 18.6 H Immature Gran % (Auto) 1.0 H [place] % (Auto) 23.4 H Lymph # (Auto) 1.10 L [place] # (Auto) 1.17 H Immature Gran # Sodium 132 L 132 L Potassium 3.0 L 3.2 L Chloride 92 L 92 L Carbon Dioxide 31 H BUN 23 H Glucose 118 H Calcium 8.4 L 8.0 L Phosphorus 2.0 L 2.1 L Magnesium 1.4 L Direct Bilirubin 0.5 H GGT 133 H AST 52 H Lactate Dehydrogenase 302 H Albumin 2.4 L Globulin 3.8 H Albumin/Globulin Ratio 0.6 L Meds: Medications Acetaminophen (Acetaminophen 325 Mg Tablet) 650 mg PO Q6HP PRN; Protocol PRN Reason: Per Pain Protocol/Fever > 101 Last Admin: 10/22/21 05:46 Dose: 650 mg Albuterol/Ipratropium (Ipratropium/Albuterol 3 Ml Ampul.Neb) 3 ml NEB Q4HP PRN PRN Reason: Shortness Of Breath Enoxaparin Sodium (Enoxaparin 40 Mg/0.4 Ml Syringe) 40 mg SQ DAILY [facility] Last Admin: 10/22/21 08:49 Dose: 40 mg Famotidine (Famotidine 20 Mg Tablet) 20 mg PO BID [facility] Last Admin: 10/22/21 08:48 Dose: 20 mg Folic Acid (Folic Acid 1 Mg Tablet) 1 mg PO DAILY [facility] Last Admin: 10/22/21 08:48 Dose: 1 mg Potassium Chloride 40 meq/ (Dextrose) 520 mls @ 130 mls/hr IV UD PRN PRN Reason: Potassium < 3 Last Infusion: 10/18/21 13:10 Dose: Infused Magnesium Sulfate (Magnesium Sulfate) 2 gm in 50 mls @ 50 mls/hr IV UD PRN PRN Reason: Magnesium </= 1.6 Last Infusion: 10/21/21 10:11 Dose: Infused Iron Carb/Multivit/Bent/Folic Acid (Multivit,Ther Iron,Ca,Fa & Min 1 Tablet) 1 tab PO DAILY [facility] Last Admin: 10/22/21 08:49 Dose: 1 tab Nitrofurantoin Macrocrystals (Nitrofurantoin Sr 100 Mg Capsule) 100 mg PO BID [facility] Last Admin: 10/22/21 08:48 Dose: 100 mg Ondansetron HCl (Ondansetron 4 Mg/2 Ml Vial) 4 mg IV Q4HP PRN PRN Reason: Nausea And Vomiting Last Admin: 10/21/21 12:28 Dose: 4 mg Polyethylene Glycol (Polyethylene Glycol 3350 17 Gm Packet) 17 gm PO DAILYP PRN PRN Reason: Constipation Potassium Chloride (Potassium Chloride 20 Meq Tablet) 40 meq PO UD PRN PRN Reason: Potssium is 3-3.5 Last Admin: 10/21/21 08:18 Dose: 40 meq Potassium Chloride (Potassium Chloride 20 Meq Tablet) 40 meq PO UD PRN PRN Reason: Potassium < 3 Last Admin: 10/19/21 07:23 Dose: 40 meq Senna (Sennosides 1 Tablet) 2 tab PO DAILYP PRN PRN Reason: Constipation Sodium Chloride (0.9 % Sodium Chloride 10 Ml Syringe) 10 ml IV Q8 [facility] Last Admin: 10/22/21 04:21 Dose: 10 ml A/P Narrative A/P Narrative: A: *Ataxia, 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 Responded to IVF in the ED, then needed bolus in ICU *Anemia,macrocytosis: 2/2 etoh. -acute on chronic likely dilutional, but check FOBT *Hyperbilirubinemia/Hypoalbuminemia/Thrombocytopenia likely sequelae of alcohol use and likely developing liver disease -Fatty liver per u/s *EVAN: 2/2 above, improved *Tobacco abuse: *COPD: *UTI (GNB): P: -monitor UOP -Thiamine/vitamins -cont Electrolyte replacement for severe deficits -CIWA, prn benzo-> D/C 10/21 -Dietary consult -Rocephin pending UC-> positive for E.Coli, switched to macrobid 10/20 -fobt -pt/ot -Smoking cessation counseling -Referral to follow with Dr. Pak (CD counseling) -ppx: lovenox (as long ast PLTs>50k) full code Time Spent With Patient Time: Total time spent is greater than 50% in coordination of care (as documented) at patient's floor/unit and/or counseling patient: Total time spent with greater than 50% in coordination of care (as documented) at patient's floor/unit and/or counseling patient:: 25 - 35 minutes
[2021-10-23] MEDS: 0.9 % SODIUM CHLORIDE 10 ML SYRINGE IV SCH (04:52)
[2021-10-23] MEDS: FAMOTIDINE 20 MG TABLET PO SCH (11:32)
[2021-10-23] MEDS: NITROFURANTOIN SR 100 MG CAPSULE PO SCH (11:32)
[2021-10-23] MEDS: MULTIVIT,THER IRON,CA,FA & MIN 1 TABLET PO SCH (11:32)
[2021-10-23] MEDS: FOLIC ACID 1 MG TABLET PO SCH (11:32)
[2021-10-23] MEDS: ENOXAPARIN 40 MG/0.4 ML SYRINGE SQ SCH (11:34)
--- NOTE | 2021-10-23 11:36 | Discharge Summary ---
Discharge Provider Provider IMPORTANT FOLLOW-UP INFORMATION FOR PCP: Patient information: Note initiated : 10/23/21 at 11:36 am Service Date, if different from initiated Date: [] Patient: Jimi Mann 56 y/o M admitted on 10/17/21 for Weakness. 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 Responded to IVF in the ED, then needed bolus in ICU *Anemia,macrocytosis: 2/2 etoh. -acute on chronic likely dilutional, but check FOBT *Hyperbilirubinemia/Hypoalbuminemia/Thrombocytopenia likely sequelae of alcohol use and likely developing liver disease -Fatty liver per u/s *EVAN: 2/2 above, improved *Tobacco abuse: *COPD: *UTI (GNB): P: -monitor UOP -Thiamine/vitamins -cont Electrolyte replacement for severe deficits -CIWA, prn benzo->D/C 10/21 -Dietary consult -Rocephin pending UC->positive for E.Coli, switched to macrobid 10/20 -fobt -pt/ot -Smoking cessation counseling -Referral to follow with Dr. Pak(CD counseling) -ppx: lovenox (as long ast PLTs>50k) Hospital course: The patient was treated for refeeding syndrome in the setting of alcoholism. There was no evidence of alcohol withdrawal and his CIWA protocol was discontinued after 72 hours. He required aggressive repletion of his potassium, magnesium, and phosphorus. The patient also completed 7 days of antibiotics for a urinary tract infection. He has declined home health and prefers outpatient physical therapy. It is recommended he follow-up with his primary care physician in 1 week's time. It is recommended he follow through with c hemical dependency counseling. Discharge diagnosis: Alcohol abuse, refeeding syndrome, complicated UTI Time Spent with Patient Time attestation: Total time spent providing and/or coordinating discharge services: Time spent: Greater than 30 minutes EXAM Constitutional Vitals: Temp Pulse Resp BP Pulse Ox O2 Del Method O2 Flow Rate 97.7 F 99 H 18 118/81 91 0 10/23/21 07:35 10/23/21 07:35 10/23/21 07:35 10/23/21 07:35 10/23/21 07:35 10/23/21 07:35 10/21/21 12:52 General appearance: average body habitus Head Head exam: Present atraumatic, normal inspection and normocephalic Eye Eye exam: Present EOMI, normal appearance and PERRL; Absent conjunctival injection ENT ENT exam: Present normal exam; Absent mucous membranes dry Neck Neck exam: Present full ROM; Absent lymphadenopathy Respiratory Respiratory exam: Present normal respiratory exam and CTAB; Absent decreased breath sounds, respiratory distress or wheezes Cardiovascular Cardiovascular exam: Present normal rate and rhythm and RRR; Absent JVD GI/Abdominal GI/Abdominal exam: Present normal bowel sounds and soft; Absent diminished bowel sounds, distended, guarding, mass, rebound or tenderness Neurological Exam Neurological exam: Present alert, CN II-XII intact and oriented X3 Psychiatric Psychiatric exam: Present normal affect and normal mood Skin Skin exam: Present intact and warm; Absent erythema, pallor, petechiae or rash Discharge Data Data Completed and Pending Labs on day of discharge: Preliminary micro results at discharge 10/18/21 18:59 Blood Culture - Preliminary Blood 10/18/21 18:54 Blood Culture - Preliminary Blood Discharge Plan Patient/Caregiver Discharge Instructions Activity: increase activity as tolerated Diet: Regular Diet Activity Restrictions/Additional Instructions: Abstain from alcohol. Follow-up closely with PCP in 3 to 7 days. Prescriptions: No Action No Known Home Meds Follow Up Plan Follow up with: Norma Pak DO [Physician] - (Alcohol abuse) Tuan Arguelles MD [Primary Care Provider] - Patient Disposition: Home, Self-Care Prognosis: Fair Rehab Potential: Good I certify that the patient requires SNF services: No Overall status at discharge: patient is progressing back to baseline Discharge Orders: Discharge Order (Routine); Ordered 10/23/21 Ordered By: Anthony Rodriguez
--- NOTE | 2021-11-04 09:49 | EKG ---
[facility] Test Date: 2021-10-17 Pat Name: Jimi Mann Department: ED Room: Gender: Male [employer]: JUNAID : [id number] Requested By: Gil Espinosa Order Number: [id number] Reading MD: Taniya Albarado Measurements Intervals [place] Rate: 100 P: 66 SD: 135 QRS: 92 QRSD: 97 T: -73 QT: 352 QTc: 454 Interpretive Statements Baseline artifact Sinus tachycardia Borderline right axis deviation Nonspecific repol abnormality, diffuse leads Abnormal ECG Electronically Signed On 10-22-2021 12:36:32 PDT by Taniya Albarado /store/[id number]
== END 2021-10-23 12:25 | disposition home or self-care (01) | DRG 57 ==
LOC: ED 16:53 → ICU 20:55 → MEDSUR 10-21 15:15
PROVIDERS: ADMIT Internal Medicine; ATTEND Internal Medicine